=== PATIENT | female | born 1975 | race Two or more races ===

== ENCOUNTER 2024-12-06 08:40 | Emergency (ER) | payer MEDICARE, MEDICAID, SELFPAY ==
--- NOTE | 2024-12-06 08:43 | EKG_ITS ---
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
--- NOTE | 2024-12-06 08:50 | XR_ITS ---
Examination: PA lateral chest 2 views TECHNIQUE: Upright PA lateral chest 2 views Exam date and time: December 06, 2024 0903 hours Comparison 01/13/2024 INDICATIONS: Onset chest pain today. FINDINGS: Normal heart size. Lungs are clear. The osseous structures are intact IMPRESSION: No active disease
--- NOTE | 2024-12-06 08:51 | PD.EDRME ---
Rapid Medical Screening Exam RME Arrival date/time: 12/06/24 08:40 49-year-old female with a history of CAD, hyperlipidemia, type 2 diabetes, hypertension presents to the emergency room with a chief complaint of sternal 10 out of 10 chest pain that radiates down her left arm x 20 minutes. I have greeted and performed a focused initial assessment of this patient. A comprehensive ED assessment and evaluation of the patient, analysis of all test results, and completion of the medical decision making process will be conducted by additional ED providers. Chief Complaint: Chest Pain Time Seen by Provider: 12/06/24 08:49 Vital signs reviewed by provider: Yes
[2024-12-06 09:02] VITALS: BP 123/81; PULSE 95; RESP 18; TEMP 36.9; O2SAT 97
[2024-12-06 09:03] VITALS: BMI 33.9
--- NOTE | 2024-12-06 09:09 | PD.EDCHEST ---
ED Chest Pain RME/HPI General Chief Complaint: Chest Pain Stated Complaint: upper mid chest pain radiating to left arm x 20min Time Seen by Provider: 12/06/24 08:49 Arrival date/time: 12/06/24 08:40 RME / HPI RME / HPI narrative: 12/06/24 08:40 49-year-old female with a history of CAD, hyperlipidemia, type 2 diabetes, hypertension presents to the emergency room with a chief complaint of sternal 10 out of 10 chest pain that radiates down her left arm x 20 minutes. I have greeted and performed a focused initial assessment of this patient. A comprehensive ED assessment and evaluation of the patient, analysis of all test results, and completion of the medical decision making process will be conducted by additional ED providers. This section includes all my notes and documentations, including HPI, PE, and ED course.? Geoff Miller MD HPI: 49-year-old female here with a couple day history of left-sided anterior chest pain. No cough. No fever or chills. No shortness of breath. No other complaints. ROS: All negative except as documented in HPI. Physical Exam: General:? Alert and oriented.? In obvious pain. Eyes:? Conjunctivae and lids clear.? ENT:? No nasal congestion.? Neck:? Supple.? Heart:? RRR.? Lungs:? No respiratory distress.? Good air movement.? No rhonchi, wheezing, rales.?? Chest: Palpation of the anterior chest, left of the sternum, reproduces her pain. Abdomen:? Soft and nontender.?? Legs:? No clubbing, cyanosis, edema.? Skin:? Warm and dry.?? Neuro:? Alert and oriented X 3.?? I reviewed all diagnostic test results. My interpretation of the EKG is?sinus rhythm with no acute ST?T changes. My interpretation of the chest x-ray is no acute findings. Blood tests unremarkable, including negative troponin. At this point, diagnoses include?chest wall pain. Treatment here included?morphine. Significant improvement noted. Recommended more outpatient cardiac workup. Based on my best medical judgment, made decision no further evaluation or treatment indicated at this time.? Patient understands and agrees to the discharge instructions customized and printed, see below. Geoff Miller MD Discharge instructions from Dr. Miller: 1. After extensive evaluation, there is no life-threatening condition.? Such as heart attack or pneumothorax (collapsed lung). 2. Your pain is originating from the chest wall and not from an internal organ.? The chest wall has many joints and muscles between the ribs, so sprains and strains are common.?? 3. Apply ice or heat if helpful.? Tylenol with codeine for severe pain. 4. See a private doctor on 12/07/2024 for recheck and second opinion. To make sure there is no serious underlying heart condition, ask to help you get more tests for your heart that cannot be done here in the ER.? Such as Holter Monitor (cardiac monitoring at home from a day to even a month), heart stress test (on treadmill or with medication), echocardiogram (imaging of your heart structures), heart catherization (checking for blockages in your heart arteries), and a referral to see a Entry Level Truck Driver.? 5. Seek immediate medical care with worsening or with any concerns.?? Related Data Home Medications ?Medication ?Instructions ?Recorded ?Confirmed metoprolol tartrate 50 mg tablet 50 mg PO BID 04/06/18 08/11/24 hydrocodone 10 mg-acetaminophen 1 tab PO BID 08/01/21 08/11/24 325 mg tablet tizanidine 4 mg capsule (Zanaflex) 4 mg PO HS 01/27/22 08/11/24 semaglutide 2 mg/dose (8 mg/3 mL) 2 mg subcut QWEEK 01/07/23 08/11/24 subcutaneous pen injector (Ozempic) amlodipine 5 mg tablet (Norvasc) 5 mg PO QDAY 04/02/24 08/11/24 atorvastatin 40 mg tablet 40 mg PO QDAY 04/02/24 08/11/24 meclizine 25 mg tablet 25 mg PO HS 04/02/24 08/11/24 montelukast 10 mg tablet 10 mg PO QDAY 04/02/24 08/11/24 omeprazole 20 mg capsule,delayed 20 mg PO BID 04/02/24 08/11/24 release ranolazine 500 mg tablet,extended 500 mg PO QDAY 04/02/24 08/11/24 release,12 hr empagliflozin 25 mg-metformin ER 1 tab PO DAILY 04/11/24 08/11/24 1,000 mg tablet,extended release 24hr (Synjardy XR) pregabalin 200 mg capsule (Lyrica) 200 mg PO QDAY 04/11/24 08/11/24 albuterol sulfate 90 mcg/actuation 1 puff inhalation QID PRN sob 08/11/24 08/11/24 aerosol inhaler (Ventolin HFA) duloxetine 60 mg capsule,delayed 120 mg PO QDAY 08/11/24 08/11/24 release (Cymbalta) ergocalciferol (vitamin D2) 1,250 1,250 mcg PO QWEEK 08/11/24 08/11/24 mcg (50,000 unit) capsule (Vitamin D2) famotidine 40 mg tablet 40 mg PO HS 08/11/24 08/11/24 fluticasone 250 mcg-salmeterol 50 1 inh inhalation BID 08/11/24 08/11/24 mcg/dose blistr powdr for inhalation (Advair Diskus) insulin glargine 100 unit/mL (3 50 unit subcut QPM 08/11/24 08/11/24 mL) subcutaneous pen (Basaglar KwikPen U-100 Insulin) insulin lispro 100 unit/mL 15 unit subcut TID 08/11/24 08/11/24 subcutaneous pen (Admelog SoloStar U-100 Insulin lispro) isosorbide mononitrate 60 mg 60 mg PO QDAY 08/11/24 08/11/24 tablet,extended release 24 hr meloxicam 7.5 mg tablet 7.5 mg PO QDAY 08/11/24 08/11/24 metoclopramide HCl 5 mg tablet 5 mg PO QID 08/11/24 08/11/24 (Reglan) pantoprazole 40 mg tablet,delayed 40 mg PO QDAY 08/11/24 08/11/24 release (Protonix) promethazine 25 mg tablet 25 mg PO BID 08/11/24 08/11/24 sennosides 8.6 mg tablet (Senokot) 8.6 mg PO BID 08/11/24 08/11/24 Previous Rx's ?Medication ?Instructions ?Recorded aspirin 81 mg tablet,delayed 81 mg PO QDAY #30 tabs 11/17/22 release clopidogrel 75 mg tablet 75 mg PO DAILY #30 tabs 11/17/22 acetaminophen 300 mg-codeine 30 mg 2 tab PO TID PRN pain #20 tabs 12/06/24 tablet Allergies Allergy/AdvReac Type Severity Reaction Status Date / Time No Known Allergies Allergy Verified 12/06/24 08:44 Review of Systems Review of Systems Systems Reviewed: All systems reviewed, normal except as documented Past Medical History Past Medical History NEUROLOGIC: Positive Neurological Disorders, Cerebrovascular Accident (2017), Peripheral Neuropathy and Migraine CARDIAC: Positive Cardiac Disorders, Myocardial Infarction (2017), Cardiac Arrhythmia, Angina, Coronary Artery Disease, Atherosclerotic Heart Disease, Hypercholesterolemia and Hypertension RESPIRATORY: Positive Asthma GASTROINTESTINAL: Positive Gastrointestinal Disorders, Gastroesophageal Reflux Disease and Obesity GENITOURINARY: Positive Genitourinary Disorders and Renal Disease (stage 3) MUSCULOSKELETAL: Positive Musculoskeletal Disorders, Arthritis, Degenerative Disk Disease and Fibromyalgia ENDOCRINE: Positive Endocrine Disorders and Diabetes Mellitus Type 2 PSYCHO/SOCIAL: Positive Depression and Anxiety OTHER HISTORY: Positive Hospitalization Family History FAMILY HISTORY: Positive Family Respiratory Disorders, Family Cardiac Disorders, Family Gastrointestinal Problems, Family Cancer and Family Surgery Surgical History SURGICAL: Positive Cardiac Surgery, Coronary Stent (x1 2020), Angiogram, Abdominal Surgery and Arthroscopy (bilateral meniscectomy) Social History SMOKING STATUS: Never smoker SUBSTANCE USE: does not use ED Exam Narrative Physical exam: As noted in HPI Course Course Course Narrative: chest xray ordered to help determine etiology of chest pain. Quality Measures none Orders Category Date Time Status EKG (ED ONLY) *Do not use* NOW Care 12/06/24 08:43 Completed EKG (ED Only) Stat Exams 12/06/24 08:43 Draft XR chest 2V Stat Exams 12/06/24 08:50 Completed B-Type Natriuretic Peptide Stat Lab 12/06/24 09:27 Completed CBC Stat Lab 12/06/24 09:27 Completed Comprehensive Metabolic Panel Stat Lab 12/06/24 09:27 Completed Drug Screen,Urine Stat Lab 12/06/24 08:50 Ordered Magnesium Stat Lab 12/06/24 09:27 Completed Partial Thromboplastin Time Stat Lab 12/06/24 09:27 Completed Prothrombin Time with INR Stat Lab 12/06/24 09:27 Completed Troponin I Stat Lab 12/06/24 09:27 Completed Urinalysis Stat Lab 12/06/24 08:50 Ordered Aspirin Chew Med 12/06/24 10:18 Discontinued 324 mg PO X1 ONE Morphine Inj Med 12/06/24 10:18 Discontinued 4 mg IVP X1 ONE Vital Signs Vital signs: Vital Signs Temperature 98.5 F 12/06/24 09:02 Pulse Rate 95 12/06/24 09:02 Respiratory Rate 18 12/06/24 09:02 Blood Pressure 123/81 12/06/24 09:02 Pulse Oximetry (%) 97 12/06/24 09:02 Oxygen Delivery Method Room Air 12/06/24 09:02 Pulse ox is 97% on room air which is adequate. Chest Pain Patient data External records reviewed:: [facility] previous records (I reviewed ED visit on 08/26/2024) Clinical information provided by:: patient Social determinants that could affect healthcare access:: none Patient has the following chronic illnesses:: CAD s/p PCI, hypertension, diabetes, hyperlipidemia How is presenting disease/condition affected by chronic disease/condition?: uneffected by Evaluation data The following diagnostics were reviewed and interpreted by me:: lab results, radiology exam(s) and EKG tracing(s) (My interpretation of the EKG is: Sinus rhythm (96 bpm) with nonspecific ST-T changes. Geoff Miller MD) Lab and/or radiology exams considered but not ordered:: None Interpretation Summary: Chest wall pain Medications / Prescriptions Medications or Prescriptions considered but not ordered:: None Medication administrations:: Medication Administration History Discontinued Medications Aspirin (Aspirin 81 Mg Chew) 324 mg PO X1 ONE Stop: 12/06/24 10:19 Last Admin: 12/06/24 10:59 Dose: 324 mg Documented By: LINDEN Morphine Sulfate (Morphine Sulf Inj 10 Mg/Ml Vial) 4 mg IVP X1 ONE Stop: 12/06/24 10:19 Last Admin: 12/06/24 11:00 Dose: 4 mg Documented By: RD Aspirin and morphine Consultations Consultation(s) initiated? (list below): No Diagnosis Chest Pain Differential Diagnosis: pneumothorax, stable angina, unstable angina pectoris, atypical chest pain, st elevation myocardial infarction, costochondritis, chest pain and other (Chest wall pain) Most likely diagnosis given after review of the tests above:: Chest wall pain Admission Indicated Admission indicated?: not indicated Explain why admission is indicated or not indicated:: Admission criteria not met Admission Request Was there a request for admission?: No Disposition Plan Disposition Plan: Discharge Discharge Attestation Discharge Attestation: The patient and all family members were given an opportunity to ask questions and understood the discharge instructions. Discharge instructions specifically effects, indications for sooner follow up or return to the emergency department, and the expected course of current diagnosis. Patient condition: Stable Discharge Plan Plan Patient Disposition: HOME (Self Care) Prescriptions/Referrals Prescriptions/Med Rec: New acetaminophen-codeine 300-30 mg tablet 2 tab PO TID MDD 6 PRN (Reason: pain) Qty: 20 0RF No Action metoprolol tartrate 50 mg Tablet 50 mg PO BID hydrocodone-acetaminophen 10-325 mg Tablet 1 tab PO BID Hold Instructions: Resume on 04/12/24. Rx Instructions: Take 1/2 tablet by mouth every 6 hours as needed for pain for 30 days tizanidine [Zanaflex] 4 mg Capsule 4 mg PO HS Hold Instructions: Resume on 04/12/24. clopidogrel 75 mg Tablet 75 mg PO DAILY Qty: 30 0RF aspirin 81 mg tablet,delayed release (DR/EC) 81 mg PO QDAY Qty: 30 0RF pregabalin [Lyrica] 200 mg Capsule 200 mg PO QDAY Hold Instructions: Resume on 04/12/24. Synjardy XR 25-1,000 mg Tablet, Ir - Er, Biphasic 24hr 1 tab PO DAILY promethazine 25 mg Tablet 25 mg PO BID insulin lispro [Admelog SoloStar U-100 Insulin] 100 unit/mL Insulin Pen 15 unit SUBCUT TID insulin glargine [Basaglar KwikPen U-100 Insulin] 100 unit/mL (3 mL) Insulin Pen 50 unit SUBCUT QPM fluticasone propion-salmeterol [Advair Diskus] 250-50 mcg/dose Blister With Device 1 inh INHALATION BID sennosides [Senokot] 8.6 mg Tablet 8.6 mg PO BID famotidine 40 mg Tablet 40 mg PO HS meloxicam 7.5 mg Tablet 7.5 mg PO QDAY isosorbide mononitrate 60 mg Tablet Extended Release 24 Hr 60 mg PO QDAY metoclopramide HCl [Reglan] 5 mg Tablet 5 mg PO QID pantoprazole [Protonix] 40 mg Tablet,Delayed Release (Dr/Ec) 40 mg PO QDAY ergocalciferol (vitamin D2) [Vitamin D2] 1,250 mcg (50,000 unit) Capsule 1,250 mcg PO QWEEK albuterol sulfate [Ventolin HFA] 90 mcg/actuation Hfa Aerosol Inhaler 1 puff INHALATION QID PRN (Reason: sob) duloxetine [Cymbalta] 60 mg Capsule,Delayed Release(Dr/Ec) 120 mg PO QDAY Ozempic 2 mg/dose (8 mg/3 mL) Pen Injector 2 mg SUBCUT QWEEK atorvastatin 40 mg Tablet 40 mg PO QDAY amlodipine [Norvasc] 5 mg Tablet 5 mg PO QDAY omeprazole 20 mg Capsule,Delayed Release(Dr/Ec) 20 mg PO BID meclizine 25 mg tablet 25 mg PO HS montelukast 10 mg Tablet 10 mg PO QDAY ranolazine 500 mg Tablet Extended Release 12 Hr 500 mg PO QDAY Referrals: Beba Moon FNP [Primary Care Provider] - In 1 week Problem List Clinical Impression: Chest pain Patient/Caregiver Discharge Instructions Discharge Activity: activity as tolerated Education Materials: ED Chest Pain, Uncertain Cause Additional Instructions: Discharge instructions from Dr. Miller: 1. After extensive evaluation, there is no life-threatening condition.? Such as heart attack or pneumothorax (collapsed lung). 2. Your pain is originating from the chest wall and not from an internal organ.? The chest wall has many joints and muscles between the ribs, so sprains and strains are common.?? 3. Apply ice or heat if helpful.? Tylenol with codeine for severe pain. 4. See a private doctor on 12/07/2024 for recheck and second opinion. To make sure there is no serious underlying heart condition, ask to help you get more tests for your heart that cannot be done here in the ER.? Such as Holter Monitor (cardiac monitoring at home from a day to even a month), heart stress test (on treadmill or with medication), echocardiogram (imaging of your heart structures), heart catherization (checking for blockages in your heart arteries), and a referral to see a Entry Level Truck Driver.? 5. Seek immediate medical care with worsening or with any concerns.?? Print Language: Urdu Stand Alone Forms: [employer] Award Info., Patient Portal Info Letter
--- NOTE | 2024-12-06 09:32 | PC.NURSE ---
Present toER with complaint of chest pain pressure 9/10 with nausea starting at 0830 this morning. Pain is continuous a nd radiates to left shoulder and arm. Previous Hx of heart attack and 1 stent with last LA x 2 years ago. Hx HTN, diabetes, ESRD, and high cholesterol with NKA. Patient GCS 15 and ambulatory.
[2024-12-06 09:37] LABS: Basophils % (Auto) 0 % (0-2.5); Eosinophils # (Auto) 0.3 Thou/mm3 (0.0-0.5); Eosinophils % (Auto) 3 % (0-10); Hematocrit 36.6 % (36.0-46.0); Hemoglobin 11.9 g/dL (12.0-16.0); Immature Granulocytes % (Auto) 0 % (0-0); Immature Granulocytes Auto 0.03 Thou/mm3 (0.00-0.00); Lymphocytes % (Auto) 21 % (10-50); Mean Corpuscular HGB Conc 32.5 g/dl (31.0-37.0); Mean Corpuscular Hemoglobin 26.9 pg (25.0-35.0); Mean Corpuscular Volume 83 fL (80-100); Monocytes # (Auto) 0.7 Thou/mm3 (0.0-0.8); Monocytes % (Auto) 7 % (0-12); Neutrophils # (Auto) 6.7 Thou/mm3 (1.8-7.7); Neutrophils % (Auto) 69 % (37-80); Nucleated Red Blood Cell % 0 /100 WBC (0); Platelet Count 319 Thou/mm3 (140-440); RDW Standard Deviation 41.8 fL (36.4-46.3); Red Blood Count 4.42 Miln/mm3 (4.00-5.20); White Blood Count 9.7 Thou/mm3 (3.6-11.0)
[2024-12-06 09:51] LABS: INR 0.9 (0.9-1.3); Partial Thromboplastin Time 27.9 Seconds (22.0-36.0); Prothrombin Time 10.4 Seconds (9.0-12.2)
[2024-12-06 09:54] LABS: B-Type Natriuretic Peptide 31 pg/mL (0-100)
[2024-12-06 09:58] LABS: Alanine Aminotransferase 13 U/L (10-49); Albumin, Serum 4.1 gm/dL (3.5-5.0); Albumin/Globulin Ratio 1.2 (1.2-2.2); Alkaline Phosphatase 118 U/L (46-116); Anion Gap 7 (7-16); Aspartate Amino Transferase 16 U/L (0-34); BUN/Creatinine Ratio 20 Ratio (12-20); Bilirubin,Total 0.3 mg/dL (0.3-1.2); Blood Urea Nitrogen 22 mg/dL (9-23); Calcium 9.3 mg/dL (8.3-10.6); Calcium (Corrected) 9.3 mg/dL (8.5-10.1); Carbon Dioxide 27.2 mMol/L (20.0-31.0); Chloride 104 mMol/L (98-107); Creatinine (Component) 1.1 mg/dL (0.6-1.3); Estimated Creatinine Clearance 74.5 mL/min (>60); Globulin 3.3 gm/dL (2.3-3.5); Glucose 265 mg/dL (74-106); Osmolality,Calculated 287 (275-295); Potassium 4.6 mMol/L (3.4-5.1); Sodium 138 mMol/L (136-145); Total Protein 7.4 gm/dL (5.7-8.2); Troponin I < 0.020 ng/mL (0.0-0.045); eGFR > 60 See Note
[2024-12-06] MEDS: ASPIRIN 81 MG CHEW 324 MG PO (10:59)
[2024-12-06 11:00] VITALS: BP 154/87; PULSE 89; RESP 16; TEMP 36.7; O2SAT 99
[2024-12-06] MEDS: MORPHINE SULF INJ 10 MG/ML VIAL 4 MG IVP (11:00)
== END 2024-12-06 12:29 | disposition home or self-care (01) ==
PROVIDERS: Nurse Practitioner Family; Emergency Provider Emergency Medicine; PCP Registered Nurse Community Health
DX: R07.89 Other chest pain (principal); E78.5 Hyperlipidemia, unspecified; E11.9 Type 2 diabetes mellitus without complications; I10 Essential (primary) hypertension
CPT/HCPCS: 36415; 71046; 80053; 80307; 81001; 83735; 83880; 84484; 85025; 85610; 85730; 93005; 96374; 99284; J2270; A9270

== ENCOUNTER → 2024-12-15 | Outpatient (CLI) | payer MEDICARE, MEDICAID, SELFPAY ==
--- NOTE | 2024-12-15 08:30 | XR_ITS ---
Exam: MRI knee without contrast, left Date and time of exam: December 15, 2024 0921 hours INDICATIONS: Generalized knee pain after fall 5 months ago, history knee surgery Technique: Multiple axial, coronal, and sagittal sections on the knee have been obtained. T2-Weighted sagittal, fat-suppressed images, TR 3,500, TE 62, T2 weighted coronal fat-saturated images, TR 3,500, TE 62 Proton density sagittal sections, TR 1800, TE 31. T-1 weighted coronal images, TR 524, TE 13.0 Findings: Medial meniscus anterior horn intact. Medial meniscus, body meniscocapsular separation. Posterior horn medial meniscus large horizontal linear tear. Lateral meniscus anterior horn truncation intermargin Lateral meniscus, body truncation inner margin and extruded from the joint space Posterior horn lateral meniscus is intact Kit cruciate ligaments appear absent Knee effusion is large with internal debris. Quadriceps and patellar tendons appear intact. There is no evidence of tendinosis. Inflammatory change or fracture of Hoffa's fat pad is not seen. Medial patellar facet demonstrates moderate thinning. Lateral patellar facet cartilage demonstrates moderate thinning. Trochlear cartilage demonstrates moderate thinning. Marrow signal adequate. Medial collateral ligament appears intact. Illiotibial band and fibular collateral ligament are intact. Biceps femoris tendons appear intact. Medial femoral condylar articular cartilage demonstrates moderate thinning. Lateral femoral condylar articular cartilage demonstratessevere thinning. Tibial plateau cartilage demonstrates severe lateral thinning. Impression: Extensive medial lateral meniscus tears Meniscocapsular separation body of the medial meniscus Absent anterior posterior cruciate ligaments Large knee effusion with synovial debris, recommend follow-up knee MRI with intravenous contrast to exclude pigmented villonodular synovitis
== END | disposition home or self-care (01) ==
PROVIDERS: PCP Registered Nurse Community Health; Referring Provider Orthopaedic Surgery; Visit Provider Orthopaedic Surgery
DX: S83.282A Other tear of lateral meniscus, current injury, left knee, initial encounter (principal); S83.195A Other dislocation of left knee, initial encounter; W19.XXXA Unspecified fall, initial encounter; M25.462 Effusion, left knee
CPT/HCPCS: 73721

== ENCOUNTER 2025-01-06 05:45 | Day surgery (SDC) | payer MEDICARE, MEDICAID, SELFPAY ==
[2025-01-05 09:49] VITALS: BMI 34.0
[2025-01-05 11:04] LABS: Basophils % (Auto) 0 % (0-2.5); Eosinophils # (Auto) 0.2 Thou/mm3 (0.0-0.5); Eosinophils % (Auto) 3 % (0-10); Hematocrit 40.8 % (36.0-46.0); Hemoglobin 12.9 g/dL (12.0-16.0); Immature Granulocytes % (Auto) 0 % (0-0); Immature Granulocytes Auto 0.02 Thou/mm3 (0.00-0.00); Lymphocytes # (Auto) 1.8 Thou/mm3 (1.0-4.8); Lymphocytes % (Auto) 23 % (10-50); Mean Corpuscular HGB Conc 31.6 g/dl (31.0-37.0); Mean Corpuscular Hemoglobin 26.4 pg (25.0-35.0); Mean Corpuscular Volume 84 fL (80-100); Monocytes # (Auto) 0.6 Thou/mm3 (0.0-0.8); Monocytes % (Auto) 8 % (0-12); Neutrophils # (Auto) 5.2 Thou/mm3 (1.8-7.7); Neutrophils % (Auto) 66 % (37-80); Nucleated Red Blood Cell % 0 /100 WBC (0); Platelet Count 365 Thou/mm3 (140-440); RDW Standard Deviation 44.5 fL (36.4-46.3); Red Blood Count 4.88 Miln/mm3 (4.00-5.20)
[2025-01-05 11:10] LABS: Partial Thromboplastin Time 29.3 Seconds (22.0-36.0); Prothrombin Time 10.5 Seconds (9.0-12.2)
[2025-01-05 11:26] LABS: Alanine Aminotransferase 14 U/L (10-49); Albumin, Serum 4.4 gm/dL (3.5-5.0); Albumin/Globulin Ratio 1.3 (1.2-2.2); Alkaline Phosphatase 112 U/L (46-116); Anion Gap 9 (7-16); Aspartate Amino Transferase 15 U/L (0-34); BUN/Creatinine Ratio 17 Ratio (12-20); Bilirubin,Total 0.3 mg/dL (0.3-1.2); Blood Urea Nitrogen 20 mg/dL (9-23); Calcium 9.9 mg/dL (8.3-10.6); Calcium (Corrected) 9.9 mg/dL (8.5-10.1); Carbon Dioxide 30.4 mMol/L (20.0-31.0); Chloride 101 mMol/L (98-107); Creatinine (Component) 1.2 mg/dL (0.6-1.3); Estimated Creatinine Clearance 68.3 mL/min (>60); Globulin 3.3 gm/dL (2.3-3.5); Glucose 94 mg/dL (74-106); Osmolality,Calculated 282 (275-295); Potassium 4.9 mMol/L (3.4-5.1); Sodium 140 mMol/L (136-145); Total Protein 7.7 gm/dL (5.7-8.2); eGFR 55 See Note
[2025-01-06] VITALS (7 sets, daily range): BP systolic 88–149; BP diastolic 55–83; PULSE 70–89; RESP 12–18; TEMP 36.3–36.7; O2SAT 95–100; BMI 35.1
[2025-01-06] MEDS: RINGERS LACTATED 1000 ML 1,000 ML 20 ML IV (06:51)
--- NOTE | 2025-01-06 07:33 | CHAP ---
Patient expressed gratitude for prayer before their procedure.
--- NOTE | 2025-01-06 08:49 | ESOP_ITS ---
Date of Procedure 01/06/25 Pre Op Diagnosis 1. Torn medial meniscus left knee joint 2 torn lateral meniscus 3 degenerative changes changes 4 synovitis Post Op Diagnosis Same Procedure 1. Partial medial meniscectomy 2. Partial lateral meniscectomy 3 chondroplasty 4 partial synovectomy Findings Refer dictation Procedure Description The patient was given general endotracheal anesthesia. Once satisfactory anesthesia was achieved, tourniquet was placed on left upper thigh. Following that the part was thoroughly prepped and draped. After using Esmarch the tourniquet pressure was raised to 350 mmHg. A skin incision was made proximal to lateral tibial plateau and arthroscope was introduced in the usual fashion. Another a skin incision was made in suprapatellar pouch area and outlet was established. The findings were noted as below. In suprapatellar pouch area significant synovial tissue inflammation was present. Medial plica was present as well. The undersurface of patella showed grade 4 chondromalacia. The anterior femoral condyle showed grade 3/4 chondromalacia. Soft tissue impingement was present. The patellar tracking was checked and found to be good. The medial compartment showed grade 4 chondromalacia for medial tibial plateau and medial femoral condyle. On the posterior aspect of the medial tibial plateau to there was an area which was completely denuded of cartilage. The medial femoral condyle showed insignificant erosion and was consistent with grade IV chondromalacia. The medial meniscus showed degeneration and tear of the anterior horn. It also showed torn posterior horn of Another skin incision was made proximal to medial tibial plateau and a probe was introduced and findings were confirmed. The anterior cruciate ligament was torn most of the part. The anterior drawer test was performed and found to be lax The lateral compartment showed grade IV chondromalacia of lateral femoral condyle and tibial plateau. Lateral meniscus showed degeneration and complex tear of the body and anterior horn. A basket was introduced and torn part of the posterior horn of the medial meni scus was excised. A shaver was introduced and shaving of the anterior horn and posterior horn of medial meniscus was performed. Soft tissue impingement was shaved off. Chondroplasty of the medial femoral condyle and medial tibial plateau was performed. A basket was introduced and torn part of the lateral meniscus excised. The shaving of the body and anterior horn body and posterior horn of lateral meniscus was done. The chondroplasty of the patella and and anterior femoral condyle was performed. The soft tissue impingement was shaved off. A partial synovectomy was performed. Copious amount of irrigation was used to irrigate the knee joint. All the debris were removed. 3-0 Prolene was used to close the wound. About 20 mL of quarter percent Marcaine along with 10 mg of Duramorph was injected. Patient tolerated procedure well. Estimated blood loss was about 5 mL. Prognosis in this case is very much guarded. Because of significant chondromalacia patient pain continues and it is significant for a long period of time patient may be a candidate for knee replacement and patient is fully aware of that. Patient was taken to the recovery room in good condition. Anesthesia GETA Pathology / specimen None Estimated Blood Loss 1 Surgeon Jones Cortes MD Surgical Staff Operation Date: 01/06/25 07:30 Case Staff Anesthesiologist: Alessandro Fuentes
--- NOTE | 2025-01-06 08:50 | SUR.PHASEI ---
0850 Patient arrived to recovery resting comfortably in [facility], on oxygen 6L via oxy mask with an oral airway, breathing unlabored, vital signs stable, dressing intact to left knee; sutures, fluffs, abd, webril, bias roll, silk tape, no bleeding noted, lung sounds clear upon auscultation, bilateral dorsalis pedis pulses present when palpated, patient has good circulation to left lower extremity; skin color normal for patient, warm to touch, report received from Juan Jose TOVAR and Dr. Lobo
--- NOTE | 2025-01-06 09:44 | SUR.PHASEII ---
0944 Patient meets discharge criteria from recovery, awake and alert, breathing unlabored, vital signs stable, denies pain, dressing intact; no bleeding noted, patient ate two jello's and drinking water, denies nausea, patient able to dress herself into her clothing, discharge instructions given to patient and patients , signed discharge instructions. Patient given all her belongings prior to discharge, transported via wheelchair and left in a private vehicle.
--- NOTE | 2025-01-06 10:12 | ESHP_ITS ---
RE: YUNG SULLIVAN : 1975 DATE OF ADMISSION: 01/06/2025 HISTORY OF PRESENT ILLNESS: The patient came to my office on 01/05/2025 for detailed preop history and physical examination. The patient got history of pain in the left knee joint for long period of time. The patient underwent two left knee arthroscopy in the past. However, the last few months is extremely painful. The patient's graded intensity of pain to be 8-9/10, affecting quality of life and activities of daily living. Knee joint is swollen as well. The patient wants something to be done about it. PAST MEDICAL HISTORY: The patient has a history of diabetes mellitus, high blood pressure, high cholesterol, coronary artery disease, gastroparesis, fibromyalgia, and high cholesterol. PAST SURGICAL HISTORY: Appendectomy, two right knee arthroscopy and two left knee arthroscopy and left rotator cuff surgery. DRUG HISTORY: The patient is on; 1. Albuterol. 2. Amlodipine. 3. Aspirin. The patient stopped aspirin recently. The patient also stopped Plavix. OTHER MEDICATIONS: Includes; 1. Vitamin D12. 2. Famotidine. 3. Glyburide. 4. Insulin. 5. Isosorbide. 6. Meclizine. 7. Metoclopramide. 8. Metoprolol. 9. Nitroglycerin. 10. Ozempic. 11. Pantoprazole. 12. Promethazine. 13. Tizanidine. ALLERGIES: NIL KNOWN. FAMILY HISTORY AND SOCIAL HISTORY: Denies smoking, drinking, and is retired. PHYSICAL EXAMINATION: GENERAL: Rather little bit overweight lady. VITAL SIGNS: Pulse 82 per minute. Blood pressure is 130/76. NECK: Soft, supple. No masses felt. Trachea is centrally placed. CARDIOVASCULAR: First and second hearts sounds normal. No murmur heard. LUNGS: Bilateral vesicular breath sounds. CHEST: Clear. ABDOMEN: Soft. No masses felt. Bowel sounds present. BREASTS: Examination is not indicated in this case. RECTAL: The patient is advised to see the family physician for rectal examination. EXTREMITIES: Left knee examination reveals 1+ swelling and 2+ tenderness. Range of motion is 0 to 115 degrees of flexion. Patellofemoral crepitus is present. There is general varus deformity. Anterior drawer test and Chrystal tests were suggestive of laxity consistent with ACL tear. DIAGNOSTIC DATA: MRI scan confirmed torn meniscus, significant degenerative joint disease changes and synovitis with increased joint fluid. ASSESSMENT AND PLAN: Detailed discussion took place. I explained that I already did two arthroscopy and there is a possibility that the patient may need a knee replacement. Detailed discussion took place. However, the patient wanted to try once more arthroscopy because it has temporized in the past. Detailed discussion took place and the patient is fully aware that if arthroscopy did not work then she will certainly need knee replacement. Risks with anesthesia was explained and that includes, but not limited to reaction to anesthetic agents, cardiac arrest or rarely it might be fatal. Risks with operation includes infection and if that happens, the patient may need further surgical procedure. Other risks include delayed healing, wound dehiscence, etc. Indeed, if we do find grade 4 chondromalacia and articular cartilage are not present, the patient may be a candidate for knee replacement. No guarantees given regarding pain relief and/or functional outcome and the patient is fully aware of that. Accordingly, surgery is booked for 01/06/2025. Appropriate lab work is done. DT: 08:59:47 TT: 10:11:00 Ref: [id number] - TID: [id number]
== END 2025-01-06 09:44 | disposition home or self-care (01) ==
PROVIDERS: Anesthesiology; PCP Registered Nurse Community Health; Referring Provider Orthopaedic Surgery; Visit Provider Orthopaedic Surgery
PROC: (CPT 29870; principal; 2025-01-06 07:30)
DX: S83.242A Other tear of medial meniscus, current injury, left knee, initial encounter (principal); E78.00 Pure hypercholesterolemia, unspecified; I25.10 Atherosclerotic heart disease of native coronary artery without angina pectoris; M65.90 Unspecified synovitis and tenosynovitis, unspecified site; M79.7 Fibromyalgia; E11.43 Type 2 diabetes mellitus with diabetic autonomic (poly)neuropathy; K31.84 Gastroparesis
CPT/HCPCS: 29880; 29875; 36415; 80053; 85025; 85610; 85730; A4217; A4649; J0690; J1100; J1885; J2250; J2371; J2405; J2704; J3010; J3490; J7120

== ENCOUNTER → 2025-01-19 | Outpatient (CLI) | payer MEDICARE, MEDICAID, SELFPAY ==
--- NOTE | 2025-01-19 15:18 | XR_ITS ---
Examination:Left hip AP, lateral, AP pelvis 3 views Technique: Hip AP lateral, AP pelvis, 3 views Exam date and time:January 19, 2025 1547 hours INDICATIONS: Left hip pain after falling 4 months ago FINDINGS: No left hip fracture or dislocation Right hip bones of the pelvis intact IMPRESSION: No hip or pelvic fracture noted.
--- NOTE | 2025-01-19 15:19 | XR_ITS ---
Examination: Right elbow 3 views Technique: Elbow AP, oblique, lateral 3 views Exam date and time: January 19, 2025 1547 hours INDICATIONS: Injury to the elbow 5 years ago with persistent elbow pain. FINDINGS: No acute fracture No dislocation No foreign body IMPRESSION: No acute fracture No significant arthritic change.
== END | disposition home or self-care (01) ==
PROVIDERS: PCP Registered Nurse Community Health; Referring Provider Nurse Practitioner Family; Visit Provider Nurse Practitioner Family
DX: M25.521 Pain in right elbow (principal); M25.552 Pain in left hip; S59.901S Unspecified injury of right elbow, sequela; X58.XXXS Exposure to other specified factors, sequela
CPT/HCPCS: 73080; 73502

== ENCOUNTER 2025-01-22 14:31 | Emergency (ER) | payer MEDICARE, MEDICAID, SELFPAY ==
[2025-01-22 15:20] VITALS: BP 96/68; PULSE 100; RESP 18; TEMP 37.2; O2SAT 98; BMI 33.9
[2025-01-22] MEDS: KETOROLAC INJ 60 MG/2 ML VIAL 30 MG IM (15:35)
--- NOTE | 2025-01-22 16:23 | PD.EDEXREM ---
ED Extremity Problem RME/HPI General Chief complaint: Extremity Problem,Nontraumatic Stated complaint: LEFT LEG PAIN SWELLING POST SURGERY 01/06/25 Time Seen by Provider: 01/22/25 15:26 Source: patient Arrival date/time: 01/22/25 14:31 49-year-old female with no known medical history presents to the emergency room with a chief complaint of left knee swelling and tenderness x 3 days. Mode of arrival: ambulatory Limitations: no limitations Related Data Home Medications ?Medication ?Instructions ?Recorded ?Confirmed metoprolol tartrate 50 mg tablet 50 mg PO BID 04/06/18 01/06/25 hydrocodone 10 mg-acetaminophen 1 tab PO BID 08/01/21 01/06/25 325 mg tablet tizanidine 4 mg capsule (Zanaflex) 4 mg PO HS 01/27/22 01/06/25 semaglutide 2 mg/dose (8 mg/3 mL) 2 mg subcut QWEEK 01/07/23 01/06/25 subcutaneous pen injector (Ozempic) amlodipine 5 mg tablet (Norvasc) 5 mg PO QDAY 04/02/24 01/06/25 atorvastatin 40 mg tablet 40 mg PO QDAY 04/02/24 01/06/25 meclizine 25 mg tablet 25 mg PO HS 04/02/24 01/06/25 montelukast 10 mg tablet 10 mg PO QDAY 04/02/24 01/06/25 omeprazole 20 mg capsule,delayed 20 mg PO BID 04/02/24 01/06/25 release ranolazine 500 mg tablet,extended 500 mg PO QDAY 04/02/24 01/06/25 release,12 hr pregabalin 200 mg capsule (Lyrica) 200 mg PO QDAY 04/11/24 01/06/25 albuterol sulfate 90 mcg/actuation 1 puff inhalation QID PRN sob 08/11/24 01/06/25 aerosol inhaler (Ventolin HFA) duloxetine 60 mg capsule,delayed 120 mg PO QDAY 08/11/24 01/06/25 release (Cymbalta) ergocalciferol (vitamin D2) 1,250 1,250 mcg PO QWEEK 08/11/24 01/06/25 mcg (50,000 unit) capsule (Vitamin D2) famotidine 40 mg tablet 40 mg PO HS 08/11/24 01/06/25 fluticasone 250 mcg-salmeterol 50 1 inh inhalation BID 08/11/24 01/06/25 mcg/dose blistr powdr for inhalation (Advair Diskus) insulin glargine 100 unit/mL (3 50 unit subcut QPM 08/11/24 01/06/25 mL) subcutaneous pen (Basaglar KwikPen U-100 Insulin) insulin lispro 100 unit/mL 15 unit subcut TID 08/11/24 01/06/25 subcutaneous pen (Admelog SoloStar U-100 Insulin lispro) isosorbide mononitrate 60 mg 60 mg PO QDAY 08/11/24 01/06/25 tablet,extended release 24 hr meloxicam 7.5 mg tablet 7.5 mg PO QDAY 08/11/24 01/06/25 metoclopramide HCl 5 mg tablet 5 mg PO QID 08/11/24 01/06/25 (Reglan) pantoprazole 40 mg tablet,delayed 40 mg PO QDAY 08/11/24 01/06/25 release (Protonix) promethazine 25 mg tablet 25 mg PO BID 08/11/24 01/06/25 sennosides 8.6 mg tablet (Senokot) 8.6 mg PO BID 08/11/24 01/06/25 glyburide 1.25 mg tablet 1.25 mg PO QDAY 01/05/25 01/06/25 nitroglycerin 0.4 mg sublingual 0.4 mg buccal [id number] PRN chest 01/05/25 01/06/25 tablet pain Previous Rx's ?Medication ?Instructions ?Recorded aspirin 81 mg tablet,delayed 81 mg PO QDAY #30 tabs 11/17/22 release clopidogrel 75 mg tablet 75 mg PO DAILY #30 tabs 11/17/22 Allergies Allergy/AdvReac Type Severity Reaction Status Date / Time No Known Allergies Allergy Verified 01/22/25 14:34 Review of Systems Review of Systems Systems Reviewed: All systems reviewed, normal except as documented Constitutional Constitutional: Reports system reviewed and no additional complaints, except as documented, Denies fatigue, Denies fever(s), Denies headache(s) and Denies weakness Eyes Eyes: Reports system reviewed and no additional complaints, except as documented, Denies blurry vision and Denies change in vision ENT Ears, Nose, Mouth, and Throat: Reports system reviewed and no additional complaints, except as documented, Denies otalgia, Denies headache(s), Denies nasal congestion, Denies throat swelling and Denies vertigo Cardiovascular Cardiovascular: Reports system reviewed and no additional complaints, except as documented, Denies chest pain, Denies dyspnea and Denies dyspnea on exertion Respiratory Respiratory: Reports system reviewed and no additional complaints, except as documented, Denies chest congestion, Denies cough, Denies dyspnea, Denies dyspnea on exertion and Denies wheezing Gastrointestinal Gastrointestinal: Reports system reviewed and no additional complaints, except as documented, Denies abdominal pain, Denies cramping, Denies nausea and Denies vomiting Genitourinary Genitourinary: Reports system reviewed and no additional complaints, except as documented Musculoskeletal Musculoskeletal: Reports system reviewed and no additional complaints, except as documented, Reports abnormal gait, Reports arthralgias, Denies back pain, Denies deformity and Reports limited range of motion Integumentary/Breasts Skin/Breast: Reports system reviewed and no additional complaints, except as documented and Denies wounds Neurologic Neurologic: Reports system reviewed and no additional complaints, except as documented, Reports abnormal gait, Denies confusion, Denies headache(s), Denies lack of coordination, Denies vertigo and Denies weakness Psychiatric Psychiatric: Reports system reviewed and no additional complaints, except as documented, Denies anxiety, Denies confusion, Denies depression, Denies paranoia, Denies suicidal ideation and Denies tactile hallucinations Endocrine Endocrine: Reports system reviewed and no additional complaints, except as documented and Denies fatigue Hematologic/Lymphatic Hematologic/Lymphatic: Reports system reviewed and no additional complaints, except as documented and Denies lymphadenopathy Allergic/Immunologic Allergic/Immunologic: Reports system reviewed and no additional complaints, except as documented, Denies throat swelling, Denies urticaria and Denies wheezing ED Exam General Limitations: Present no limitations General appearance: Present alert and in no apparent distress Head Head exam: Present atraumatic Eye Eye exam: Present normal appearance, PERRL and EOMI ENT ENT exam: Present normal exam, normal oropharynx and mucous membranes moist Neck Neck exam: Present normal inspection, full ROM and trachea midline Chest Chest inspection: Present normal inspection and symmetric chest wall rise Respiratory Respiratory exam: Present normal lung sounds bilaterally Cardiovascular Cardiovascular exam: Present regular rate, normal rhythm and normal heart sounds Abdominal Exam Abdominal exam: Present soft and normal bowel sounds Extremities Exam Extremities exam: Present normal inspection and full ROM Expanded Lower Extremity Exam Hip/Pelvis exam: Present normal inspection Upper leg exam: Present normal inspection Knee exam: Present tenderness and swelling; Absent full ROM, deformity, erythema or effusion Lower leg exam: Present normal inspection; Absent Homans' sign Ankle exam: Present normal inspection Foot/toe exam: Present normal inspection Back Exam Back exam: Present normal inspection and full ROM Neurological Exam Neurological exam: Present alert, oriented X3 and CN II-XII intact Psychiatric Psychiatric exam: Present normal affect and normal mood Skin Skin exam: Present warm, dry, intact and normal color Course Quality Measures none Orders Category Date Time Status igor wrap [Splint / Immobilizer] STAT Care 01/22/25 15:24 Completed Ketorolac Inj [Toradol Inj] Med 01/22/25 15:24 Discontinued 30 mg IM X1 ONE Vital Signs Vital signs: Vital Signs Temperature 98.9 F 01/22/25 15:20 Pulse Rate 100 01/22/25 15:20 Respiratory Rate 18 01/22/25 15:20 Blood Pressure 96/68 01/22/25 15:20 Pulse Oximetry (%) 98 01/22/25 15:20 Oxygen Delivery Method Room Air 01/22/25 15:20 O2 saturation 98% within normal limits Extremity Problem MDM Narrative MDM Narrative:: 49-year-old female with no known medical history presents to the emergency room with a chief complaint of left knee swelling and tenderness x 3 days. Patient is hemodynamically stable. Physical examination shows tenderness and pain to the left knee. Patient states she is having pain and swelling to the knee. There is no pain or tenderness to the calf or groin. There is a negative Homans' sign there is no warmth to the touch or any signs of infection. Patient was educated that she needs to put an Igor wrap on it and see her surgeon for possible total knee replacement. Patient states she has a appointment with her surgeon already. Patient denies any trauma to the area there is no numbness or tingling to the area. Medication was given and the patient was reevaluated with significant improvement to her pain in her knee. Patient was discharged and educated to follow-up with her surgeon and return to the emergency room for any evidence of worsening signs or symptoms. Patient data External records reviewed:: [facility] previous records Clinical information provided by:: patient Social determinants that could affect healthcare access:: none Patient has the following chronic illnesses:: No chronic illness How is presenting disease/condition affected by chronic disease/condition?: no chronic disease Evaluation data The following diagnostics were reviewed and interpreted by me:: lab results and radiology exam(s) Lab and/or radiology exams considered but not ordered:: N/A Interpretation Summary: N/A Medications / Prescriptions Medications or Prescriptions considered but not ordered:: Medication given Medication administrations:: Medication Administration History Discontinued Medications Ketorolac Tromethamine (Ketorolac Inj 60 Mg/2 Ml Vial) 30 mg IM X1 ONE Stop: 01/22/25 15:25 Last Admin: 01/22/25 15:35 Dose: 30 mg Documented By: KF Medication given Consultations Consultation(s) initiated? (list below): No Diagnosis Extremity Problem Differential Diagnosis: deep venous thrombosis of upper extremity, lower extremity edema, deep vein thrombosis of lower extremity and other (Left knee pain/left knee sprain) Most likely diagnosis given after review of the tests above:: Left knee sprain Admission Indicated Admission indicated?: not indicated Admission Request Was there a request for admission?: No Disposition Plan Disposition Plan: Discharge Discharge Attestation Discharge Attestation: The patient and all family members were given an opportunity to ask questions and understood the discharge instructions. Discharge instructions specifically effects, indications for sooner follow up or return to the emergency department, and the expected course of current diagnosis. Patient condition: Stable Discharge Plan Plan Patient Disposition: HOME (Self Care) Disposition Comment: Stable Prescriptions/Referrals Prescriptions/Med Rec: No Action metoprolol tartrate 50 mg Tablet 50 mg PO BID hydrocodone-acetaminophen 10-325 mg Tablet 1 tab PO BID Rx Instructions: Take 1/2 tablet by mouth every 6 hours as needed for pain for 30 days tizanidine [Zanaflex] 4 mg Capsule 4 mg PO HS clopidogrel 75 mg Tablet 75 mg PO DAILY Qty: 30 0RF aspirin 81 mg tablet,delayed release (DR/EC) 81 mg PO QDAY Qty: 30 0RF pregabalin [Lyrica] 200 mg Capsule 200 mg PO QDAY promethazine 25 mg Tablet 25 mg PO BID insulin lispro [Admelog SoloStar U-100 Insulin] 100 unit/mL Insulin Pen 15 unit SUBCUT TID insulin glargine [Basaglar KwikPen U-100 Insulin] 100 unit/mL (3 mL) Insulin Pen 50 unit SUBCUT QPM fluticasone propion-salmeterol [Advair Diskus] 250-50 mcg/dose Blister With Device 1 inh INHALATION BID sennosides [Senokot] 8.6 mg Tablet 8.6 mg PO BID famotidine 40 mg Tablet 40 mg PO HS meloxicam 7.5 mg Tablet 7.5 mg PO QDAY isosorbide mononitrate 60 mg Tablet Extended Release 24 Hr 60 mg PO QDAY metoclopramide HCl [Reglan] 5 mg Tablet 5 mg PO QID pantoprazole [Protonix] 40 mg Tablet,Delayed Release (Dr/Ec) 40 mg PO QDAY ergocalciferol (vitamin D2) [Vitamin D2] 1,250 mcg (50,000 unit) Capsule 1,250 mcg PO QWEEK albuterol sulfate [Ventolin HFA] 90 mcg/actuation Hfa Aerosol Inhaler 1 puff INHALATION QID PRN (Reason: sob) duloxetine [Cymbalta] 60 mg Capsule,Delayed Release(Dr/Ec) 120 mg PO QDAY Ozempic 2 mg/dose (8 mg/3 mL) Pen Injector 2 mg SUBCUT QWEEK atorvastatin 40 mg Tablet 40 mg PO QDAY amlodipine [Norvasc] 5 mg Tablet 5 mg PO QDAY omeprazole 20 mg Capsule,Delayed Release(Dr/Ec) 20 mg PO BID meclizine 25 mg tablet 25 mg PO HS montelukast 10 mg Tablet 10 mg PO QDAY ranolazine 500 mg Tablet Extended Release 12 Hr 500 mg PO QDAY nitroglycerin 0.4 mg tablet, sublingual 0.4 mg BUCCAL [id number] PRN (Reason: chest pain) Patient Comments: DISSOLVE 1 TABLET UNDER THE TONGUE EVERY 5 MINUTES UP TO THREE DOSES NEEDED FOR CHEST PAIN. CALL 911 IF NO RELIEF glyburide 1.25 mg tablet 1.25 mg PO QDAY Problem List Clinical Impression: Acute pain of left knee Patient/Caregiver Discharge Instructions Education Materials: ED IGOR Wrap, ED Arthralgia Additional Instructions: Please follow-up with your knee surgeon. Your total knee replacement will be the surgery to fix your problems. Please follow-up with your knee surgeon and let them know that you are having increased pain and swelling. Medication was given here to help you with your swelling and pain. For any evidence of worsening signs or symptoms please return to the emergency room immediately Print Language: Burmese Stand Alone Forms: Sapna Award Info., Patient Portal Info Letter PA/PORCELAIN TECHNICIAN Supervising Physician PA/JESSICA Supervising Physician: Dr. Benson
== END 2025-01-22 15:44 | disposition home or self-care (01) ==
PROVIDERS: Emergency Provider Emergency Medicine; PCP Registered Nurse Community Health
DX: M25.562 Pain in left knee (principal)
CPT/HCPCS: 96372; 99283; J1885

== ENCOUNTER 2025-01-27 22:41 | Emergency (ER) | payer MEDICARE, MEDICAID, SELFPAY ==
[2025-01-28 00:15] VITALS: BP 156/90; PULSE 100; RESP 18; TEMP 37.2; O2SAT 100; BMI 34.4
--- NOTE | 2025-01-28 00:31 | XR_ITS ---
Examination: Knee, left , 3 views Technique: Knee AP, lateral, oblique 3 views Date and time of exam: January 28, 2025 0122 hrs. Comparison 08/19/2024 Indications: Knee pain and swelling beginning 3 weeks ago. Findings: Moderate narrowing lateral joint space Moderate osteopenia Large knee effusion No fracture On the lateral view of the femoral condyles appear anteriorly displaced relative to the articulating surfaces of the tibia Impression: On the lateral view the femoral condyles appear anteriorly displaced relative to the tibial plateau, subluxation appearance, clinical correlation advised
--- NOTE | 2025-01-28 00:31 | XR_ITS ---
Examination: Duplex scan of the lower extremity, unilateral left complete Date and time of exam: January 28, 2025 0040 hrs. Indications: Left knee pain and swelling post knee surgery January 06, 2025 Technique: Duplex scan of the extremity veins using B-mode/grayscale imaging and Doppler spectral analysis and color flow Attention is directed to internal echogenicity, compression and augmentation involving these veins, color flow assessment, spectral analysis Findings: Major deep venous structures in the extremity demonstrate normal course and caliber. There is no evidence of deep vein thrombosis. Normal color flow and spectral analysis 4.4 x 2.9 x 3.8 cm mixed echogenic mass in the left perineal region most consistent with hematoma, clinical correlation advised Impression: Negative for DVT.. 4.4 x 2.9 x 3.8 cm mixed echogenic mass in the left perineal region most consistent with hematoma, clinical correlation advised
--- NOTE | 2025-01-28 00:32 | PD.EDRME ---
Rapid Medical Screening Exam [facility] Arrival date/time: 01/27/25 22:41 49F with history of DM, CAD/MS, and recent L knee surgery by Dr. Tamez (follow-up on ) presents to ED with worsening L knee pain, swelling, and warmth. Chief Complaint: Extremity Injury, Lower Vital signs: Vital Signs Temperature 99 F 01/28/25 00:15 Pulse Rate 100 01/28/25 00:15 Respiratory Rate 18 01/28/25 00:15 Blood Pressure 156/90 H 01/28/25 00:15 Pulse Oximetry (%) 100 01/28/25 00:15 Oxygen Delivery Method Room Air 01/28/25 00:15
[2025-01-28] MEDS: HYDROcodone/APAP 5/325 TABLET 1 TAB PO (00:40)
--- NOTE | 2025-01-28 02:39 | PRELIM_ITS ---
Left lower extremity venous Doppler ultrasound. January 28, 2025 at 0048 hours Clinical history: Rule out deep vein thrombosis. Technique: Duplex scan of the left lower extremity deep venous systems was performed utilizing 2D grayscale imaging, Doppler spectral analysis and color flow Doppler and with compression. Comparison: No prior study currently available for review Findings: Hernandez scale, color flow and spectral Doppler evaluation of the left lower extremity deep veins was performed. The common femoral, superficial femoral and popliteal veins are patent and compressible. Normal respiratory variation and augmentation are noted. The great saphenous vein is patent and compressible at the level of the saphenofemoral junction. The calf veins to the extent visualized are patent. There is no evidence of occlusive or nonocclusive thrombus. There is a focal 4.4 x 2.9 x 3.8 cm mixed echogenicity collection within the peroneal/popliteal region which may indicate a hematoma or other cystic lesion. Impression: No sonographic evidence of deep venous thrombosis in the left lower extremity. A 4.4 cm mixed echogenicity but predominately cystic appearing lesion in the peroneal/popliteal region may represent a hematoma or other cystic lesion. Recommend soft tissue ultrasound of this region for further evaluation. Report Electronically Signed By: Byron Frey 01/28/2025 2:38:42 AM [EST]
[2025-01-28 02:47] LABS: Basophils % (Auto) 0 % (0-2.5); Eosinophils # (Auto) 0.3 Thou/mm3 (0.0-0.5); Eosinophils % (Auto) 3 % (0-10); Hematocrit 33.5 % (36.0-46.0); Hemoglobin 10.9 g/dL (12.0-16.0); Immature Granulocytes % (Auto) 0 % (0-0); Immature Granulocytes Auto 0.04 Thou/mm3 (0.00-0.00); Lymphocytes # (Auto) 2.3 Thou/mm3 (1.0-4.8); Lymphocytes % (Auto) 24 % (10-50); Mean Corpuscular HGB Conc 32.5 g/dl (31.0-37.0); Mean Corpuscular Hemoglobin 26.5 pg (25.0-35.0); Mean Corpuscular Volume 81 fL (80-100); Monocytes # (Auto) 0.9 Thou/mm3 (0.0-0.8); Monocytes % (Auto) 9 % (0-12); Neutrophils # (Auto) 6.1 Thou/mm3 (1.8-7.7); Neutrophils % (Auto) 63 % (37-80); Nucleated Red Blood Cell % 0 /100 WBC (0); Platelet Count 397 Thou/mm3 (140-440); RDW Standard Deviation 42.3 fL (36.4-46.3); Red Blood Count 4.12 Miln/mm3 (4.00-5.20); White Blood Count 9.6 Thou/mm3 (3.6-11.0)
[2025-01-28 03:20] LABS: Alanine Aminotransferase 9 U/L (10-49); Albumin, Serum 4.3 gm/dL (3.5-5.0); Albumin/Globulin Ratio 1.3 (1.2-2.2); Alkaline Phosphatase 127 U/L (46-116); Anion Gap 8 (7-16); Aspartate Amino Transferase 11 U/L (0-34); BUN/Creatinine Ratio 22 Ratio (12-20); Bilirubin,Total 0.3 mg/dL (0.3-1.2); Blood Urea Nitrogen 22 mg/dL (9-23); C-Reactive Protein 17.3 mg/dL (0.0-0.9); Calcium 9.8 mg/dL (8.3-10.6); Calcium (Corrected) 9.8 mg/dL (8.5-10.1); Carbon Dioxide 26.6 mMol/L (20.0-31.0); Chloride 106 mMol/L (98-107); Estimated Creatinine Clearance 82.6 mL/min (>60); Globulin 3.3 gm/dL (2.3-3.5); Glucose 92 mg/dL (74-106); Osmolality,Calculated 284 (275-295); Potassium 4.7 mMol/L (3.4-5.1); Procalcitonin 0.05 ng/ml (0.0-0.49); Sodium 141 mMol/L (136-145); Total Protein 7.6 gm/dL (5.7-8.2); eGFR > 60 See Note
[2025-01-28 03:49] LABS: Sed Rate (ESR) 108 mm/hr (0-20)
--- NOTE | 2025-01-28 07:16 | PD.EDADULT ---
ED General RME/HPI General Chief complaint: Extremity Injury, Lower Stated complaint: LEFT KNEE SWELLING, HOT TO TOUCH, AND PAINFUL Time Seen by Provider: 01/28/25 01:22 Arrival date/time: 01/27/25 22:41 RME / HPI RME / HPI narrative: 01/27/25 22:41 RME: 49F with history of DM, CAD/OH, and recent L knee surgery by Dr. Tamez (follow-up on ) presents to ED with worsening L knee pain, swelling, and warmth. HPI: 49-year-old female with history of diabetes, coronary artery disease, who has had chronic left knee effusion with multiple arthroscopies done by Dr. Cabral (last December) who presents to the emergency department with worsening of her chronic left knee swelling. She contacted Dr. Cortes and he is not back until Thursday therefore she comes to the emergency department relief. She takes [place] 10/325 twice a day as prescribed by her pain specialist. She did contact her pain specialist and advised to continue with prescription from Dr. Cortes. Related Data Home Medications ?Medication ?Instructions ?Recorded ?Confirmed metoprolol tartrate 50 mg tablet 50 mg PO BID 04/06/18 01/06/25 hydrocodone 10 mg-acetaminophen 1 tab PO BID 08/01/21 01/06/25 325 mg tablet tizanidine 4 mg capsule (Zanaflex) 4 mg PO HS 01/27/22 01/06/25 semaglutide 2 mg/dose (8 mg/3 mL) 2 mg subcut QWEEK 01/07/23 01/06/25 subcutaneous pen injector (Ozempic) amlodipine 5 mg tablet (Norvasc) 5 mg PO QDAY 04/02/24 01/06/25 atorvastatin 40 mg tablet 40 mg PO QDAY 04/02/24 01/06/25 meclizine 25 mg tablet 25 mg PO HS 04/02/24 01/06/25 montelukast 10 mg tablet 10 mg PO QDAY 04/02/24 01/06/25 omeprazole 20 mg capsule,delayed 20 mg PO BID 04/02/24 01/06/25 release ranolazine 500 mg tablet,extended 500 mg PO QDAY 04/02/24 01/06/25 release,12 hr pregabalin 200 mg capsule (Lyrica) 200 mg PO QDAY 04/11/24 01/06/25 albuterol sulfate 90 mcg/actuation 1 puff inhalation QID PRN sob 08/11/24 01/06/25 aerosol inhaler (Ventolin HFA) duloxetine 60 mg capsule,delayed 120 mg PO QDAY 08/11/24 01/06/25 release (Cymbalta) ergocalciferol (vitamin D2) 1,250 1,250 mcg PO QWEEK 08/11/24 01/06/25 mcg (50,000 unit) capsule (Vitamin D2) famotidine 40 mg tablet 40 mg PO HS 08/11/24 01/06/25 fluticasone 250 mcg-salmeterol 50 1 inh inhalation BID 08/11/24 01/06/25 mcg/dose blistr powdr for inhalation (Advair Diskus) insulin glargine 100 unit/mL (3 50 unit subcut QPM 08/11/24 01/06/25 mL) subcutaneous pen (Basaglar KwikPen U-100 Insulin) insulin lispro 100 unit/mL 15 unit subcut TID 08/11/24 01/06/25 subcutaneous pen (Admelog SoloStar U-100 Insulin lispro) isosorbide mononitrate 60 mg 60 mg PO QDAY 08/11/24 01/06/25 tablet,extended release 24 hr meloxicam 7.5 mg tablet 7.5 mg PO QDAY 08/11/24 01/06/25 metoclopramide HCl 5 mg tablet 5 mg PO QID 08/11/24 01/06/25 (Reglan) pantoprazole 40 mg tablet,delayed 40 mg PO QDAY 08/11/24 01/06/25 release (Protonix) promethazine 25 mg tablet 25 mg PO BID 08/11/24 01/06/25 sennosides 8.6 mg tablet (Senokot) 8.6 mg PO BID 08/11/24 01/06/25 glyburide 1.25 mg tablet 1.25 mg PO QDAY 01/05/25 01/06/25 nitroglycerin 0.4 mg sublingual 0.4 mg buccal [id number] PRN chest 01/05/25 01/06/25 tablet pain Previous Rx's ?Medication ?Instructions ?Recorded aspirin 81 mg tablet,delayed 81 mg PO QDAY #30 tabs 11/17/22 release clopidogrel 75 mg tablet 75 mg PO DAILY #30 tabs 11/17/22 Allergies Allergy/AdvReac Type Severity Reaction Status Date / Time No Known Allergies Allergy Verified 01/30/25 12:11 Review of Systems Review of Systems Systems Reviewed: All systems reviewed, normal except as documented ED Exam Narrative Physical exam: GENERAL APPEARANCE: AxOx4, generally well-appearing, mild to moderate distress, nontoxic HEENT: NC, AT. MMM. EOMI, clear conjunctiva, oropharynx clear.. HEART: Normal rate and regular rhythm, normal S1/S1, no m/r/g LUNGS: CTAB, moving air well. No crackles or wheezes are heard. EXTREMITIES: Without cyanosis, clubbing or edema. MUSCULOSKELETAL: Left knee with 3 surgical port scars that are clean dry and intact, mild to moderate knee effusion without erythema, minimal warmth, with distal Swelling and pitting edema. FROM of all remaining major joints, no chest tenderness NEUROLOGICAL: Grossly nonfocal. Alert and oriented, moving all 4 extremities. CN not formally tested but appear grossly intact. Observed to ambulate with normal gait. Skin: Warm and dry without any rash. Course Quality Measures none Orders Category Date Time Status US venous doppler LE LT Stat Exams 01/28/25 00:31 Completed XR knee LT 3V Stat Exams 01/28/25 00:31 Completed CBC Stat Lab 01/28/25 02:24 Completed CMP [Comprehensive Metabolic Panel] Stat Lab 01/28/25 02:24 Completed CRP [C-Reactive Protein] Stat Lab 01/28/25 02:24 Completed ESR [Sed Rate (ESR)] Stat Lab 01/28/25 02:24 Completed Procalcitonin Stat Lab 01/28/25 02:24 Completed HYDROcodone*/APAP 5/325 [[place] 5/325] Med 01/28/25 00:31 Discontinued 1 tab PO X1 ONE HYDROcodone*/APAP 5/325 [[place] 5/325] Med 01/28/25 07:14 Discontinued 2 tab PO X1 ONE Vital Signs Vital signs: Vital Signs Temperature 99 F 01/28/25 00:15 Pulse Rate 100 01/28/25 00:15 Respiratory Rate 18 01/28/25 00:15 Blood Pressure 156/90 H 01/28/25 00:15 Pulse Oximetry (%) 100 03/01/25 00:15 Oxygen Delivery Method Room Air 01/28/25 00:15 SpO2 100% on room air, patient is not hypoxic MDM Patient data External records reviewed:: [facility] previous records Clinical information provided by:: patient Social determinants that could affect healthcare access:: none Patient has the following chronic illnesses:: Chronic knee pain How is presenting disease/condition affected by chronic disease/condition?: caused by Evaluation data The following diagnostics were reviewed and interpreted by me:: lab results and radiology exam(s) Lab and/or radiology exams considered but not ordered:: As per narrative Interpretation Summary: As per narrative Medications Medications considered but not ordered:: None Medication administrations:: Medication Administration History Discontinued Medications Hydrocodone Bitart/Acetaminophen (Hydrocodone/Apap 5/325 Tablet) 1 tab PO X1 ONE Stop: 01/28/25 00:32 Last Admin: 01/28/25 00:40 Dose: 1 tab Documented By: SCARLETT Hydrocodone Bitart/Acetaminophen (Hydrocodone/Apap 5/325 Tablet) 2 tab PO X1 ONE Stop: 01/28/25 07:15 Last Admin: 01/28/25 07:57 Dose: 2 tab Documented By: CUAUHTEMOC Above Consultations Consultation(s) initiated? (list below): No Diagnosis Differential Diagnosis ED Complaint MDM: Knee effusion, arthritis, septic joint, cellulitis, DVT Most likely diagnosis given after review of the tests above:: See below Admission Indicated Admission indicated?: not indicated Explain why admission is indicated or not indicated:: As per narrative Admission Request Was there a request for admission?: No Disposition Plan Disposition Plan: Discharge Discharge Attestation Discharge Attestation: The patient and all family members were given an opportunity to ask questions and understood the discharge instructions. Discharge instructions specifically effects, indications for sooner follow up or return to the emergency department, and the expected course of current diagnosis. Patient condition: Stable Medical Decision Making MDM Narrative MDM Narrative: Ms. Hidalgo has a history of chronic knee pain followed by orthopedics and a pain specialist who presents with left knee effusion after a recent arthroscopy done by her orthopedist, Dr. Cortes. Clinical exam is consistent with a moderate knee effusion without significant redness or warmth that would be consistent with a septic joint. I do not feel this is a septic joint, and given recent surgical intervention, it is expected to have a component of inflammation. Patient is also followed by chronic pain management which she did contact and was not giving additional relief for and is largely a part of why she is in the emergency department today. Laboratory testing was sent via the E process shows no acute findings. Given her exam I do not feel it is warranted to do synovial analysis today. She was given a dose of her home pain medicines and to follow-up closely with her orthopedist. Differential Diagnosis Differential Diagnosis: Knee effusion, arthritis, septic joint, cellulitis, DVT Lab Data 01/28/25 02:24 01/28/25 02:24 Labs: Lab Results 01/28/25 Range/Units 02:24 WBC 9.6 (3.6-11.0) Thou/mm3 RBC 4.12 (4.00-5.20) Miln/mm3 Hgb 10.9 L (12.0-16.0) g/dL Hct 33.5 L (36.0-46.0) % MCV 81 (80-100) fL MCH 26.5 (25.0-35.0) pg MCHC 32.5 (31.0-37.0) g/dl RDW Std Deviation 42.3 (36.4-46.3) fL Plt Count 397 D (140-440) Thou/mm3 Neut % (Auto) 63 (37-80) % Lymph % (Auto) 24 (10-50) % [place] % (Auto) 9 (0-12) % Eos % (Auto) 3 (0-10) % Baso % (Auto) 0 (0-2.5) % Neut # (Auto) 6.1 (1.8-7.7) Thou/mm3 Lymph # (Auto) 2.3 (1.0-4.8) Thou/mm3 [place] # (Auto) 0.9 H (0.0-0.8) Thou/mm3 Eos # (Auto) 0.3 (0.0-0.5) Thou/mm3 Baso # (Auto) 0.0 (0.0-0.2) Thou/mm3 Immature Gran # (Auto) 0.04 H (0.00-0.00) Thou/mm3 Absolute Nucleated RBC 0.00 (0.00-0.00) Thou/mm3 Immature Gran % 0 (0-0) % Nucleated RBC % 0 (0) /100 WBC ESR 108 H (0-20) mm/hr Sodium 141 (136-145) mMol/L Potassium 4.7 (3.4-5.1) mMol/L Chloride 106 (98-107) mMol/L Carbon Dioxide 26.6 (20.0-31.0) mMol/L Anion Gap 8 (7-16) BUN 22 (9-23) mg/dL Creatinine 1.0 (0.6-1.3) mg/dL Estim Creat Clear Calc 82.6 (>60) mL/min eGFR > 60 (60 - ) See Note BUN/Creatinine Ratio 22 H (12-20) Ratio Glucose 92 (74-106) mg/dL Calculated Osmolality 284 (275-295) Calcium 9.8 (8.3-10.6) mg/dL Corrected Calcium 9.8 (8.5-10.1) mg/dL Total Bilirubin 0.3 (0.3-1.2) mg/dL AST 11 (0-34) U/L ALT 9 L (10-49) U/L Alkaline Phosphatase 127 H (46-116) U/L C-Reactive Prot, Quant 17.3 H (0.0-0.9) mg/dL Total Protein 7.6 (5.7-8.2) gm/dL Albumin 4.3 (3.5-5.0) gm/dL Globulin 3.3 (2.3-3.5) gm/dL Albumin/Globulin Ratio 1.3 (1.2-2.2) Procalcitonin 0.05 (0.0-0.49) ng/ml Discharge Plan Plan Patient Disposition: HOME (Self Care) Prescriptions/Referrals Prescriptions/Med Rec: No Action metoprolol tartrate 50 mg Tablet 50 mg PO BID hydrocodone-acetaminophen 10-325 mg Tablet 1 tab PO BID Rx Instructions: Take 1/2 tablet by mouth every 6 hours as needed for pain for 30 days tizanidine [Zanaflex] 4 mg Capsule 4 mg PO HS clopidogrel 75 mg Tablet 75 mg PO DAILY Qty: 30 0RF aspirin 81 mg tablet,delayed release (DR/EC) 81 mg PO QDAY Qty: 30 0RF pregabalin [Lyrica] 200 mg Capsule 200 mg PO QDAY promethazine 25 mg Tablet 25 mg PO BID insulin lispro [Admelog SoloStar U-100 Insulin] 100 unit/mL Insulin Pen 15 unit SUBCUT TID insulin glargine [Basaglar KwikPen U-100 Insulin] 100 unit/mL (3 mL) Insulin Pen 50 unit SUBCUT QPM fluticasone propion-salmeterol [Advair Diskus] 250-50 mcg/dose Blister With Device 1 inh INHALATION BID sennosides [Senokot] 8.6 mg Tablet 8.6 mg PO BID famotidine 40 mg Tablet 40 mg PO HS meloxicam 7.5 mg Tablet 7.5 mg PO QDAY isosorbide mononitrate 60 mg Tablet Extended Release 24 Hr 60 mg PO QDAY metoclopramide HCl [Reglan] 5 mg Tablet 5 mg PO QID pantoprazole [Protonix] 40 mg Tablet,Delayed Release (Dr/Ec) 40 mg PO QDAY ergocalciferol (vitamin D2) [Vitamin D2] 1,250 mcg (50,000 unit) Capsule 1,250 mcg PO QWEEK albuterol sulfate [Ventolin HFA] 90 mcg/actuation Hfa Aerosol Inhaler 1 puff INHALATION QID PRN (Reason: sob) duloxetine [Cymbalta] 60 mg Capsule,Delayed Release(Dr/Ec) 120 mg PO QDAY Ozempic 2 mg/dose (8 mg/3 mL) Pen Injector 2 mg SUBCUT QWEEK atorvastatin 40 mg Tablet 40 mg PO QDAY amlodipine [Norvasc] 5 mg Tablet 5 mg PO QDAY omeprazole 20 mg Capsule,Delayed Release(Dr/Ec) 20 mg PO BID meclizine 25 mg tablet 25 mg PO HS montelukast 10 mg Tablet 10 mg PO QDAY ranolazine 500 mg Tablet Extended Release 12 Hr 500 mg PO QDAY nitroglycerin 0.4 mg tablet, sublingual 0.4 mg BUCCAL [id number] PRN (Reason: chest pain) Patient Comments: DISSOLVE 1 TABLET UNDER THE TONGUE EVERY 5 MINUTES UP TO THREE DOSES NEEDED FOR CHEST PAIN. CALL 911 IF NO RELIEF glyburide 1.25 mg tablet 1.25 mg PO QDAY Referrals: Beba Moon, [facility] [Primary Care Provider] - In 1 week Problem List Clinical Impression: Effusion of knee joint, left, Chronic knee pain Patient/Caregiver Discharge Instructions Education Materials: ED Chronic Pain, ED Knee Effusion Additional Instructions: Follow-up with Dr. Cortes as scheduled. Follow-up with your pain specialist in 1 week. You can return to the emergency department sooner symptoms worsen or if you notice any new, concerning issues. Print Language: [place] Citizen Stand Alone Forms: [employer] Info., Patient Portal Info Letter
[2025-01-28] MEDS: HYDROcodone/APAP 5/325 TABLET 2 TAB PO (07:57)
== END 2025-01-28 08:36 | disposition home or self-care (01) ==
PROVIDERS: Physician Assistant; Emergency Provider Emergency Medicine; PCP Registered Nurse Community Health
DX: M25.462 Effusion, left knee (principal); G89.29 Other chronic pain; M25.562 Pain in left knee; E11.9 Type 2 diabetes mellitus without complications
CPT/HCPCS: 36415; 73562; 80053; 84145; 85025; 85652; 86140; 93971; 99284; A9270

== ENCOUNTER 2025-01-30 12:08 | Emergency (ER) | payer MEDICARE, MEDICAID, SELFPAY ==
[2025-01-30 12:26] VITALS: BP 129/86; PULSE 89; RESP 19; TEMP 36.7; O2SAT 99; BMI 35.6
--- NOTE | 2025-01-30 12:47 | XR_ITS ---
Examination: Duplex scan of the lower extremity, unilateral left complete Date and time of exam: January 30, 2025 1336 hours INDICATIONS: Left knee pain and swelling beginning one month ago, postop knee surgery January 06, 2025 Technique: Duplex scan of the extremity veins using B-mode/grayscale imaging and Doppler spectral analysis and color flow Attention is directed to internal echogenicity, compression and augmentation involving these veins, color flow assessment, spectral analysis Findings: Major deep venous structures in the extremity demonstrate normal course and caliber. There is no evidence of deep vein thrombosis. Normal color flow and spectral analysis Left knee probable popliteal cyst 30 x 24 mm Impression: Negative for DVT..
--- NOTE | 2025-01-30 12:47 | PD.EDRME ---
Rapid Medical Screening Exam RME Arrival date/time: 01/30/25 12:08 49-year-old female with history of diabetes, coronary artery disease, who has had chronic left knee effusion with multiple arthroscopies done by Dr Cortes Presents to the emergency department with worsening swelling, tenderness, and warmth to her left knee and left leg. I have greeted and performed a focused initial assessment of this patient. A comprehensive ED assessment and evaluation of the patient, analysis of all test results, and completion of the medical decision making process will be conducted by additional ED providers. Chief Complaint: Extremity Injury, Lower Time Seen by Provider: 01/30/25 12:29 Vital signs: Vital Signs Temperature 98.1 F 01/30/25 12:26 Pulse Rate 89 01/30/25 12:26 Respiratory Rate 19 01/30/25 12:26 Blood Pressure 129/86 H 01/30/25 12:26 Pulse Oximetry (%) 99 01/30/25 12:26 Oxygen Delivery Method Room Air 01/30/25 12:26 Vital signs reviewed by provider: Yes
[2025-01-30] MEDS: KETOROLAC INJ 60 MG/2 ML VIAL 30 MG IM (13:06)
[2025-01-30] MEDS: HYDROmorphone INJ 2 MG/ML VIAL 1 MG IM (13:07)
[2025-01-30 13:11] LABS: Basophils % (Auto) 0 % (0-2.5); Eosinophils # (Auto) 0.3 Thou/mm3 (0.0-0.5); Eosinophils % (Auto) 3 % (0-10); Hematocrit 34.4 % (36.0-46.0); Hemoglobin 10.9 g/dL (12.0-16.0); Immature Granulocytes % (Auto) 1 % (0-0); Immature Granulocytes Auto 0.04 Thou/mm3 (0.00-0.00); Lymphocytes # (Auto) 1.9 Thou/mm3 (1.0-4.8); Lymphocytes % (Auto) 22 % (10-50); Mean Corpuscular HGB Conc 31.7 g/dl (31.0-37.0); Mean Corpuscular Hemoglobin 26.5 pg (25.0-35.0); Mean Corpuscular Volume 84 fL (80-100); Monocytes # (Auto) 0.5 Thou/mm3 (0.0-0.8); Monocytes % (Auto) 6 % (0-12); Neutrophils # (Auto) 5.7 Thou/mm3 (1.8-7.7); Neutrophils % (Auto) 68 % (37-80); Nucleated Red Blood Cell % 0 /100 WBC (0); Platelet Count 468 Thou/mm3 (140-440); RDW Standard Deviation 43.4 fL (36.4-46.3); Red Blood Count 4.11 Miln/mm3 (4.00-5.20); White Blood Count 8.4 Thou/mm3 (3.6-11.0)
[2025-01-30 13:26] LABS: Alanine Aminotransferase 10 U/L (10-49); Albumin, Serum 4.7 gm/dL (3.5-5.0); Albumin/Globulin Ratio 1.5 (1.2-2.2); Alkaline Phosphatase 158 U/L (46-116); Anion Gap 10 (7-16); Aspartate Amino Transferase 10 U/L (0-34); BUN/Creatinine Ratio 18 Ratio (12-20); Bilirubin,Total 0.2 mg/dL (0.3-1.2); Blood Urea Nitrogen 27 mg/dL (9-23); Calcium 9.9 mg/dL (8.3-10.6); Calcium (Corrected) 9.9 mg/dL (8.5-10.1); Carbon Dioxide 26.7 mMol/L (20.0-31.0); Chloride 102 mMol/L (98-107); Creatinine (Component) 1.5 mg/dL (0.6-1.3); Estimated Creatinine Clearance 56.1 mL/min (>60); Globulin 3.2 gm/dL (2.3-3.5); Glucose 316 mg/dL (74-106); Osmolality,Calculated 294 (275-295); Potassium 4.8 mMol/L (3.4-5.1); Sodium 139 mMol/L (136-145); Total Protein 7.9 gm/dL (5.7-8.2); eGFR 42 See Note
[2025-01-30 15:35] VITALS: BP 189/110; PULSE 72; RESP 16; TEMP 36.3; O2SAT 100
--- NOTE | 2025-01-30 15:39 | PC.NURSE ---
Patient states pain to left knee pain x 3 weeks s/p surgery on 01/10/25, chart up for review. patient states pain decreased to 7/10 after dilaudid administration.
--- NOTE | 2025-01-30 16:27 | PD.EDADULT ---
ED General RME/HPI General Chief complaint: Extremity Injury, Lower Stated complaint: UNABLE TO STAND ON L) LEG; SURG 1 MO AGO; PAINFUL Time Seen by Provider: 01/30/25 12:29 Arrival date/time: 01/30/25 12:08 CC: Persistent lower extremity pain in the left lower extremity since sutures were removed on January 16 status post medial meniscus tear. The patient is awake alert oriented patient is on chronic pain management. Has had the same issue for the past 2 weeks. Patient denies fever chills shortness of breath difficulty breathing headache nausea vomiting or diarrhea. Patient states that she has been elevating the leg but has had no relief. No other complaints at this time. RME / HPI RME / HPI narrative: 01/30/25 12:08 49-year-old female with history of diabetes, coronary artery disease, who has had chronic left knee effusion with multiple arthroscopies done by Dr Cortes Presents to the emergency department with worsening swelling, tenderness, and warmth to her left knee and left leg. I have greeted and performed a focused initial assessment of this patient. A comprehensive ED assessment and evaluation of the patient, analysis of all test results, and completion of the medical decision making process will be conducted by additional ED providers. Related Data Home Medications ?Medication ?Instructions ?Recorded ?Confirmed metoprolol tartrate 50 mg tablet 50 mg PO BID 04/06/18 01/06/25 hydrocodone 10 mg-acetaminophen 1 tab PO BID 08/01/21 01/06/25 325 mg tablet tizanidine 4 mg capsule (Zanaflex) 4 mg PO HS 01/27/22 01/06/25 semaglutide 2 mg/dose (8 mg/3 mL) 2 mg subcut QWEEK 01/07/23 01/06/25 subcutaneous pen injector (Ozempic) amlodipine 5 mg tablet (Norvasc) 5 mg PO QDAY 04/02/24 01/06/25 atorvastatin 40 mg tablet 40 mg PO QDAY 04/02/24 01/06/25 meclizine 25 mg tablet 25 mg PO HS 04/02/24 01/06/25 montelukast 10 mg tablet 10 mg PO QDAY 04/02/24 01/06/25 omeprazole 20 mg capsule,delayed 20 mg PO BID 04/02/24 01/06/25 release ranolazine 500 mg tablet,extended 500 mg PO QDAY 04/02/24 01/06/25 release,12 hr pregabalin 200 mg capsule (Lyrica) 200 mg PO QDAY 04/11/24 01/06/25 albuterol sulfate 90 mcg/actuation 1 puff inhalation QID PRN sob 08/11/24 01/06/25 aerosol inhaler (Ventolin HFA) duloxetine 60 mg capsule,delayed 120 mg PO QDAY 08/11/24 01/06/25 release (Cymbalta) ergocalciferol (vitamin D2) 1,250 1,250 mcg PO QWEEK 08/11/24 01/06/25 mcg (50,000 unit) capsule (Vitamin D2) famotidine 40 mg tablet 40 mg PO HS 08/11/24 01/06/25 fluticasone 250 mcg-salmeterol 50 1 inh inhalation BID 08/11/24 01/06/25 mcg/dose blistr powdr for inhalation (Advair Diskus) insulin glargine 100 unit/mL (3 50 unit subcut QPM 08/11/24 01/06/25 mL) subcutaneous pen (Basaglar KwikPen U-100 Insulin) insulin lispro 100 unit/mL 15 unit subcut TID 08/11/24 01/06/25 subcutaneous pen (Admelog SoloStar U-100 Insulin lispro) isosorbide mononitrate 60 mg 60 mg PO QDAY 08/11/24 01/06/25 tablet,extended release 24 hr meloxicam 7.5 mg tablet 7.5 mg PO QDAY 08/11/24 01/06/25 metoclopramide HCl 5 mg tablet 5 mg PO QID 08/11/24 01/06/25 (Reglan) pantoprazole 40 mg tablet,delayed 40 mg PO QDAY 08/11/24 01/06/25 release (Protonix) promethazine 25 mg tablet 25 mg PO BID 08/11/24 01/06/25 sennosides 8.6 mg tablet (Senokot) 8.6 mg PO BID 08/11/24 01/06/25 glyburide 1.25 mg tablet 1.25 mg PO QDAY 01/05/25 01/06/25 nitroglycerin 0.4 mg sublingual 0.4 mg buccal [id number] PRN chest 01/05/25 01/06/25 tablet pain Previous Rx's ?Medication ?Instructions ?Recorded aspirin 81 mg tablet,delayed 81 mg PO QDAY #30 tabs 11/17/22 release clopidogrel 75 mg tablet 75 mg PO DAILY #30 tabs 11/17/22 Allergies Allergy/AdvReac Type Severity Reaction Status Date / Time No Known Allergies Allergy Verified 01/30/25 12:11 Review of Systems Review of Systems Narrative Review of Systems: GEN: No fever, no chills, no weight loss EYES: No discharge, no visual changes, no pain HEENT: No ear pain, no congestion, no sore throat PULM: No shortness of breath, no cough, no congestion CV: No chest pain, no dyspnea on exertion, no palpitations GI: No nausea, no vomiting, no diarrhea, no pain, no constipation : No frequency, no urgency, no dysuria MUSC/SKEL: No joint pain, no back pain, lower leg pain SKIN: No rash PSYCH: No hallucinations, no depression HEME/LYMPH: No easy bleeding or bruising tendencies NEURO: No weakness, no headache Past Medical History Past Medical History NEUROLOGIC: Positive Neurological Disorders, Cerebrovascular Accident, Peripheral Neuropathy and Migraine; Negative Transient Ischemic Attacks (TIA), Dementia, Alzheimer's Disease, Parkinson's Disease, Brain Tumor, Meningitis, Seizures, Epilepsy, Multiple Sclerosis, Cerebral Palsy, Amyotrophic Lateral Sclerosis (ALS/Majo Gehrig's), Guillain-Hinckley Syndrome, Spina Bifida, Paralysis, Damon's Palsy, Subdural Hematoma, Head Trauma, Spinal Cord Injury or Traumatic Brain Injury CARDIAC: Positive Cardiac Disorders, Myocardial Infarction, Cardiac Arrhythmia, Angina, Coronary Artery Disease, Atherosclerotic Heart Disease, Hypercholesterolemia and Hypertension; Negative Atrial Fibrillation, Heart Murmur, Peripheral Vascular Disease, Aneurysm, Congestive Heart Failure, Congenital Heart Disease, Valvular Heart Disease, Rheumatic Fever, Cardiomyopathy, Edema, Pericarditis, Cellulitis, Deep Vein Thrombosis, Hypotension or Varicose Veins RESPIRATORY: Positive Asthma; Negative Chronic Obstructive Pulmonary Disease (COPD), Bronchitis, Emphysema, Pneumonia, Pulmonary Fibrosis, Cystic Fibrosis, Tuberculosis, Pulmonary Embolism, Pulmonary Edema or Sleep Apnea GASTROINTESTINAL: Positive Gastrointestinal Disorders, Gastroesophageal Reflux Disease and Obesity; Negative Hepatitis, Cirrhosis, Pancreatitis, Celiac Disease, Gall Bladder Disease, Gastrointestinal Bleed, Esophageal Varices, Henao's Esophagus, Colitis, Ulcerative Colitis, Diverticulitis, Diverticulosis, Ulcer, Colorectal Cancer, Irritable Bowel, Crohn's Disease, Obstructive Bowel, Hiatal Hernia or Hemorrhoids GENITOURINARY: Positive Genitourinary Disorders and Renal Disease; Negative Kidney Stones, Polycystic Kidney Disease, Neurogenic Bladder, Inguinal Hernia, Dialysis, Prostate Cancer or Benign Prostatic Hyperplasia REPRODUCTIVE: Negative Breast Cancer, Endometriosis, Genital Herpes, Gonorrhea, Pelvic Inflammatory Disease, Previous Pregnancies, Syphilis, Testicular Cancer or Uterine Prolapse MUSCULOSKELETAL: Positive Musculoskeletal Disorders, Arthritis, Degenerative Disk Disease and Fibromyalgia; Negative Muscular Dystrophy, Myasthenia Gravis, Marfan's Syndrome, Bone Cancer, Rheumatoid Arthritis, Osteoporosis, Gout, Scoliosis, Carpal Tunnel Syndrome, Fractures, Degenerative Joint Disease, Osteomyelitis or Poliovirus ENT: Negative Cataracts, Glaucoma, Blind, Retinal Detachment, Macular Degeneration, Ear Infection, Deafness, Head Trauma or Eye Prosthesis ENDOCRINE: Positive Endocrine Disorders and Diabetes Mellitus Type 2; Negative Diabetes Mellitus Type 1, Hypoglycemia, [place]'s Syndrome, Cascadia's Disease, Hyperthyroidism, Hypothyroidism, Parathyroid Disease, Pituitary Disease, Systemic Lupus Erythematosus, Syndrome of Inappropriate Antidiuretic Hormone (SIADH), Adrenal Disease or Graves' Disease HEMATOLOGIC: Negative Blood Disorders, Anemia, Leukemia, Hemophilia, Thalassemia, Sickle Cell Disease or Clotting Problems PSYCHO/SOCIAL: Positive Depression and Anxiety; Negative Psychiatric Problems, Schizophrenia, Recreational Drug Use, Bipolar Disorder, Behavior Problems, Self-Mutilation, Attention Deficit Disorder, Attention Deficit Hyperactivity Disorder, Depression, Post Traumatic Stress Disorder or Eating Disorder OTHER HISTORY: Positive Hospitalization; Negative Autoimmune Disease, Down Syndrome, Autism, Developmental Delay, Shingles, Falls, Blood Transfusions, Blood Transfusion Reaction, Anesthesia Reactions, Organ Transplant, Chemotherapy, Radiation Therapy, Hyperbaric Therapy, MRSA, VRSA, Vancomycin-Resistant Enterococci, Human Immunodeficiency Virus (HIV), Chicken Pox, Measles, Mumps, Rubella (Cymro Measles), Pertussis, Clostridium Difficile, Cancer, Breast Cancer, Cervical Cancer, Colorectal Cancer, Lung Cancer, Ovarian Cancer, Prostate Cancer or Testicular Cancer Family History FAMILY HISTORY: Positive Family Respiratory Disorders, Family Cardiac Disorders, Family Gastrointestinal Problems, Family Cancer and Family Surgery; Negative Family Psychiatric Problems or Family Anesthesia Reaction Surgical History SURGICAL: Positive Cardiac Surgery, Coronary Stent (2020), Angiogram, Abdominal Surgery, Knee Sx (surgery on 01/06/25) and Arthroscopy (2 on left knee, 1 right knee); Negative Open Heart Surgery, Coronary Artery Bypass Graft, Valve Replacement, Vascular Surgery, Cardiac Catheterization, Pacemaker, Auto Implanted Cardiovert Defib, Carotid Endarterectomy, Endocrine Surgery, Thyroidectomy, Ear Surgery, Tympanostomy Tube, Eye Surgery, Nose Surgery, Oral Surgery, Tonsillectomy, Adenoidectomy, Cochlear Implant, Corneal Transplant, Throat Surgery, Tracheostomy, Gastric Bypass Surgery, Gastrostomy, Bowel Surgery, Nephrectomy, Transurethral Resection, Joint Replacement, Amputation, Open Reduction Internal Fixation, Neurologic Surgery, Brain Shunt, Mastectomy, Lumpectomy, Hysterectomy, Tubal Ligation, Section, Vasectomy or Organ Transplant Social History SMOKING STATUS: Never smoker SUBSTANCE USE: does not use ED Exam Narrative Physical exam: [General: Obese, in moderate discomfort not in any acute distress Head normocephalic HEENT: Within acceptable limits Neck is supple nontender Chest equal chest rise nontender to palpation Respiratory: Clear to auscultation no wheezes crackles or rubs CV: Rate rhythm is regular no murmurs rubs or clicks Abdomen is distended secondary to body habitus soft nontender no masses positive bowel sounds all 4 quadrants Back: No CVA tenderness no spinous process tenderness from cervical spine thoracic and lumbar spine Skin: Intact no petechiae rash induration ulceration or crepitus Extremities: Left lower extremity, the patient is significantly edematous knee, and lower extremity with pitting edema, no erythema warm to touch decreased range of motion secondary to localized pain cap refill of the digits less than 2 seconds neurosensory intact. Moving all other extremities against resistance cap refill less than 2 seconds neurosensory intact Neuro: Awake alert oriented x3 Glascow coma 15 no focal deficits] Course Quality Measures none Orders Category Date Time Status US venous doppler LE LT Stat Exams 01/30/25 12:47 Completed CBC Stat Lab 01/30/25 12:55 Completed CMP [Comprehensive Metabolic Panel] Stat Lab 01/30/25 12:55 Completed HYDROmorphone INJ [Dilaudid Inj] Med 01/30/25 12:44 Discontinued 1 mg IM X1 ONE Ketorolac Inj [Toradol Inj] Med 01/30/25 12:44 Discontinued 30 mg IM X1 ONE oxyCODONE/APAP 5/325 [Percocet 5/325] Med 01/30/25 16:18 Discontinued 1 tab PO X1 ONE Vital Signs Vital signs: Vital Signs Temperature 98.1 F 01/30/25 12:26 Pulse Rate 89 01/30/25 12:26 Respiratory Rate 19 01/30/25 12:26 Blood Pressure 129/86 H 01/30/25 12:26 Pulse Oximetry (%) 99 01/30/25 12:26 Oxygen Delivery Method Room Air 01/30/25 12:26 MDM Patient data External records reviewed:: [facility] previous records Clinical information provided by:: patient Social determinants that could affect healthcare access:: none Patient has the following chronic illnesses:: Chronic pain recent meniscal tear surgery in the left knee. How is presenting disease/condition affected by chronic disease/condition?: uneffected by Evaluation data The following diagnostics were reviewed and interpreted by me:: lab results and radiology exam(s) Lab and/or radiology exams considered but not ordered:: Ultrasound the left lower leg is negative for DVT CBC shows no acute leukocytosis anemia thrombocytopenia CMP shows no acute electrolyte imbalances renal impairment transaminitis or T. bili elevation the mildly elevated glucose Interpretation Summary: Lower extremity edema that is noncritical at this time. Patient is a chronic pain management patient is I discussed the patient's and she has an appointment with Dr.'s Shirley Moralez, the orthopedic surgeon in 4 days. Medications Medications considered but not ordered:: None Medication administrations:: Medication Administration History Discontinued Medications Hydromorphone HCl (Hydromorphone Inj 2 Mg/Ml Vial) 1 mg IM X1 ONE Stop: 01/30/25 12:45 Last Admin: 01/30/25 13:07 Dose: 1 mg Documented By: LINDEN Ketorolac Tromethamine (Ketorolac Inj 60 Mg/2 Ml Vial) 30 mg IM X1 ONE Stop: 01/30/25 12:45 Last Admin: 01/30/25 13:06 Dose: 30 mg Documented By: LINDEN Oxycodone/Acetaminophen (Oxycodone/Apap 5/325 Tablet) 1 tab PO X1 ONE Stop: 01/30/25 16:19 None Consultations Consultation(s) initiated? (list below): No Diagnosis Differential Diagnosis ED Complaint MDM: DVT cellulitis abscess of the left lower leg Most likely diagnosis given after review of the tests above:: Left lower leg pitting edema and pain Admission Indicated Admission indicated?: not indicated Explain why admission is indicated or not indicated:: Stable for outpatient follow-up Admission Request Was there a request for admission?: No Disposition Plan Disposition Plan: Discharge Discharge Attestation Discharge Attestation: The patient and all family members were given an opportunity to ask questions and understood the discharge instructions. Discharge instructions specifically effects, indications for sooner follow up or return to the emergency department, and the expected course of current diagnosis. Patient condition: Stable Medical Decision Making Differential Diagnosis Differential Diagnosis: DVT cellulitis abscess of the left lower leg Lab Data 01/30/25 12:55 01/30/25 12:55 Labs: Lab Results 01/30/25 Range/Units 12:55 WBC 8.4 (3.6-11.0) Thou/mm3 RBC 4.11 (4.00-5.20) Miln/mm3 Hgb 10.9 L (12.0-16.0) g/dL Hct 34.4 L (36.0-46.0) % MCV 84 (80-100) fL MCH 26.5 (25.0-35.0) pg MCHC 31.7 (31.0-37.0) g/dl RDW Std Deviation 43.4 (36.4-46.3) fL Plt Count 468 H D (140-440) Thou/mm3 Neut % (Auto) 68 (37-80) % Lymph % (Auto) 22 (10-50) % Trinity % (Auto) 6 (0-12) % Eos % (Auto) 3 (0-10) % Baso % (Auto) 0 (0-2.5) % Neut # (Auto) 5.7 (1.8-7.7) Thou/mm3 Lymph # (Auto) 1.9 (1.0-4.8) Thou/mm3 Trinity # (Auto) 0.5 (0.0-0.8) Thou/mm3 Eos # (Auto) 0.3 (0.0-0.5) Thou/mm3 Baso # (Auto) 0.0 (0.0-0.2) Thou/mm3 Immature Gran # (Auto) 0.04 H (0.00-0.00) Thou/mm3 Absolute Nucleated RBC 0.00 (0.00-0.00) Thou/mm3 Immature Gran % 1 H (0-0) % Nucleated RBC % 0 (0) /100 WBC Sodium 139 (136-145) mMol/L Potassium 4.8 (3.4-5.1) mMol/L Chloride 102 (98-107) mMol/L Carbon Dioxide 26.7 (20.0-31.0) mMol/L Anion Gap 10 (7-16) BUN 27 H (9-23) mg/dL Creatinine 1.5 H D (0.6-1.3) mg/dL Estim Creat Clear Calc 56.1 L (>60) mL/min eGFR 42 L (60 - ) See Note BUN/Creatinine Ratio 18 (12-20) Ratio Glucose 316 H D (74-106) mg/dL Calculated Osmolality 294 (275-295) Calcium 9.9 (8.3-10.6) mg/dL Corrected Calcium 9.9 (8.5-10.1) mg/dL Total Bilirubin 0.2 L (0.3-1.2) mg/dL AST 10 (0-34) U/L ALT 10 (10-49) U/L Alkaline Phosphatase 158 H D (46-116) U/L Total Protein 7.9 (5.7-8.2) gm/dL Albumin 4.7 (3.5-5.0) gm/dL Globulin 3.2 (2.3-3.5) gm/dL Albumin/Globulin Ratio 1.5 (1.2-2.2) Discharge Plan Plan Patient Disposition: HOME (Self Care) Patient condition on transfer: Stable Prescriptions/Referrals Prescriptions/Med Rec: No Action metoprolol tartrate 50 mg Tablet 50 mg PO BID hydrocodone-acetaminophen 10-325 mg Tablet 1 tab PO BID Rx Instructions: Take 1/2 tablet by mouth every 6 hours as needed for pain for 30 days tizanidine [Zanaflex] 4 mg Capsule 4 mg PO HS clopidogrel 75 mg Tablet 75 mg PO DAILY Qty: 30 0RF aspirin 81 mg tablet,delayed release (DR/EC) 81 mg PO QDAY Qty: 30 0RF pregabalin [Lyrica] 200 mg Capsule 200 mg PO QDAY promethazine 25 mg Tablet 25 mg PO BID insulin lispro [Admelog SoloStar U-100 Insulin] 100 unit/mL Insulin Pen 15 unit SUBCUT TID insulin glargine [Basaglar KwikPen U-100 Insulin] 100 unit/mL (3 mL) Insulin Pen 50 unit SUBCUT QPM fluticasone propion-salmeterol [Advair Diskus] 250-50 mcg/dose Blister With Device 1 inh INHALATION BID sennosides [Senokot] 8.6 mg Tablet 8.6 mg PO BID famotidine 40 mg Tablet 40 mg PO HS meloxicam 7.5 mg Tablet 7.5 mg PO QDAY isosorbide mononitrate 60 mg Tablet Extended Release 24 Hr 60 mg PO QDAY metoclopramide HCl [Reglan] 5 mg Tablet 5 mg PO QID pantoprazole [Protonix] 40 mg Tablet,Delayed Release (Dr/Ec) 40 mg PO QDAY ergocalciferol (vitamin D2) [Vitamin D2] 1,250 mcg (50,000 unit) Capsule 1,250 mcg PO QWEEK albuterol sulfate [Ventolin HFA] 90 mcg/actuation Hfa Aerosol Inhaler 1 puff INHALATION QID PRN (Reason: sob) duloxetine [Cymbalta] 60 mg Capsule,Delayed Release(Dr/Ec) 120 mg PO QDAY Ozempic 2 mg/dose (8 mg/3 mL) Pen Injector 2 mg SUBCUT QWEEK atorvastatin 40 mg Tablet 40 mg PO QDAY amlodipine [Norvasc] 5 mg Tablet 5 mg PO QDAY omeprazole 20 mg Capsule,Delayed Release(Dr/Ec) 20 mg PO BID meclizine 25 mg tablet 25 mg PO HS montelukast 10 mg Tablet 10 mg PO QDAY ranolazine 500 mg Tablet Extended Release 12 Hr 500 mg PO QDAY nitroglycerin 0.4 mg tablet, sublingual 0.4 mg BUCCAL [id number] PRN (Reason: chest pain) Patient Comments: DISSOLVE 1 TABLET UNDER THE TONGUE EVERY 5 MINUTES UP TO THREE DOSES NEEDED FOR CHEST PAIN. CALL 911 IF NO RELIEF glyburide 1.25 mg tablet 1.25 mg PO QDAY Referrals: Beba Moon BOAT JOINER [Primary Care Provider] - In 1 week Problem List Clinical Impression: Lower extremity pain, Edema of lower extremity Patient/Caregiver Discharge Instructions Education Materials: ED Leg Swelling in a Single Leg Additional Instructions: Keep the leg highly elevated, follow-up with Dr. Lester. As stated. If there is a worsening of symptoms including a fever or red streaks on the leg return to the emergency room for reevaluation. Print Language: Macedonian Stand Alone Forms: [employer] Award Info., Work/School Release, Patient Portal Info Letter PA/BOAT JOINER Supervising Physician PA/BOAT JOINER Supervising Physician: Piter Ray ENP
== END 2025-01-30 16:47 | disposition home or self-care (01) ==
PROVIDERS: Nurse Practitioner Family; Emergency Provider Emergency Medicine; PCP Registered Nurse Community Health
DX: M79.662 Pain in left lower leg (principal); R60.0 Localized edema; G89.29 Other chronic pain; I25.10 Atherosclerotic heart disease of native coronary artery without angina pectoris; E11.9 Type 2 diabetes mellitus without complications; E66.9 Obesity, unspecified; Z68.35 Body mass index [BMI] 35.0-35.9, adult
CPT/HCPCS: 36415; 80053; 85025; 93971; 96372; 99284; J1885; J3490

== ENCOUNTER 2025-02-04 10:11 | Emergency (ER) | payer MEDICARE, MEDICAID, SELFPAY ==
[2025-02-04 10:15] VITALS: PULSE 107; RESP 18; O2SAT 98
--- NOTE | 2025-02-04 10:15 | PC.NURSE ---
Patient placed in rigid cervical collar do to c/o mid line neck pain.
[2025-02-04 10:18] VITALS: BP 171/96; PULSE 93; RESP 18; TEMP 36.7; O2SAT 98
[2025-02-04 10:21] VITALS: BMI 33.6
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
[2025-02-04] MEDS: DIAZEPAM 5 MG TABLET PO (10:50)
[2025-02-04] MEDS: HYDROcodone/APAP 5/325 TABLET 1 TAB PO (10:50)
[2025-02-04 11:22] LABS: Collection Type, Urine Clean Catch
[2025-02-04 11:36] LABS: Bilirubin,Urine Negative (Negative); Blood,Urine Negative (Negative); Clarity,Urine Clear (Clear/Hazy); Color,Urine Lt-Yellow (Lt Yel-Yel); Culture Indicated,Urine Not Indicated; Glucose, Urine 4+ (Negative); Ketones,Urine Negative (Negative); Leukocyte Esterase,Urine Negative (Negative); Nitrite,Urine Negative (Negative); PH,Urine 5.5 (5.0-7.0); Protein,Urine 1+ (Neg - Trace); RBC,Urine < 1 /hpf (0-3); Specific Gravity,Urine 1.021 (1.001-1.035); Squamous Epithelial Cell,Urine 1 /hpf (0-5); Urobilinogen,Urine Negative mg/dL (0.0-1.0); WBC,Urine 1 /hpf (0-5)
[2025-02-04 11:38] LABS: HCG Qualitative,Urine Negative
[2025-02-04 12:32] VITALS: BP 182/112; PULSE 87; RESP 18; TEMP 36.4; O2SAT 100
--- NOTE | 2025-02-04 13:15 | PC.NURSE ---
PATIENT STATES PAIN 9/10. INFORMED ER PROVIDER AND RECEIVED VERBAL ORDER FOR NORCO 10.
[2025-02-04] MEDS: HYDROcodone/APAP 10/325 TAB PO (13:27)
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
[2025-02-04 15:05] VITALS: BP 144/95; PULSE 80; RESP 18; TEMP 36.4; O2SAT 100
--- NOTE | 2025-02-04 15:38 | PC.NURSE ---
RECEIVED VERBAL ORDER FROM ER PROVIDER FOR 5 MG CYCLOBENZAPRINE PO
[2025-02-04] MEDS: CYCLObenzaPRINE 5 MG TABLET PO (15:41)
== END 2025-02-04 16:21 | disposition home or self-care (01) ==
PROVIDERS: Emergency Provider Emergency Medicine; PCP Registered Nurse Community Health
DX: S39.012A Strain of muscle, fascia and tendon of lower back, initial encounter (principal); M54.2 Cervicalgia; M25.562 Pain in left knee; G89.29 Other chronic pain; E11.42 Type 2 diabetes mellitus with diabetic polyneuropathy; I10 Essential (primary) hypertension; E78.5 Hyperlipidemia, unspecified; I25.2 Old myocardial infarction; Z95.5 Presence of coronary angioplasty implant and graft; Z86.73 Personal history of transient ischemic attack (TIA), and cerebral infarction without residual deficits; V53.6XXA Passenger in pick-up truck or van injured in collision with car, pick-up truck or van in traffic accident, initial encounter; Y92.410 Unspecified street and highway as the place of occurrence of the external cause
CPT/HCPCS: 51701; 70450; 72125; 72128; 72131; 81001; 81025; 99284; A9270

== ENCOUNTER 2025-02-10 18:01 | Emergency (ER) | payer MEDICARE, MEDICAID, SELFPAY ==
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
[2025-02-10 18:40] VITALS: BP 182/94; PULSE 89; RESP 18; TEMP 37; O2SAT 99; BMI 33.6
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
[2025-02-10] MEDS: HYDROcodone/APAP 5/325 TABLET 1 TAB PO (19:13)
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
== END 2025-02-10 22:07 | disposition home or self-care (01) ==
PROVIDERS: Emergency Provider Emergency Medicine; PCP Registered Nurse Community Health
DX: S83.105A Unspecified dislocation of left knee, initial encounter (principal); S80.12XA Contusion of left lower leg, initial encounter; S90.02XA Contusion of left ankle, initial encounter; S90.32XA Contusion of left foot, initial encounter; V89.9XXA Person injured in unspecified vehicle accident, initial encounter
CPT/HCPCS: 73562; 73610; 73630; 93971; 99284; A9270

== ENCOUNTER → 2025-02-17 | Outpatient (CLI) | payer MEDICARE, MEDICAID, SELFPAY ==
--- NOTE | 2025-02-17 14:38 | XR_ITS ---
Examination: Knee, left , 3 views Technique: Knee AP, lateral, oblique 3 views Date and time of exam: February 10, 2025 at 1441 hours INDICATIONS: Knee pain months FINDINGS: There is widening of the medial joint space and medial mild subluxation of the femoral condyles relative to the tibial plateau, advanced narrowing lateral joint space Large knee effusion No fracture IMPRESSION: Widening of the medial joint space and mild medial subluxation of the femoral condyles relative to the tibial plateau, consider incompetent medial collateral ligament Consider MRI knee without contrast follow-up
== END | disposition home or self-care (01) ==
LOC: CDIM 14:30
PROVIDERS: PCP Registered Nurse Community Health; Referring Provider Orthopaedic Surgery; Visit Provider Orthopaedic Surgery
DX: S83.192A Other subluxation of left knee, initial encounter (principal); X58.XXXA Exposure to other specified factors, initial encounter; Z98.890 Other specified postprocedural states
CPT/HCPCS: 73562

== ENCOUNTER 2025-06-11 14:09 | Emergency (ER) | payer MEDICARE, MEDICAID, SELFPAY ==
[2025-06-11 14:10] VITALS: BMI 34.4
[2025-06-11 14:59] VITALS: BP 94/54; PULSE 99; RESP 18; TEMP 36.3; O2SAT 100
--- NOTE | 2025-06-11 15:10 | PD.EDEXREM ---
ED Extremity Problem RME/HPI General Chief complaint: Extremity Problem,Nontraumatic Stated complaint: LEFT LEG PAIN AND SWELLING Time Seen by Provider: 06/11/25 14:41 Arrival date/time: 06/11/25 14:09 This is a 50-year-old female that comes into the emergency room with complaints of left leg pain and swelling. Patient states she has seen a surgeon in [facility]. Patient scheduled to have an MRI done next week. Patient states that on approximately 05/21/2025 she had some fluid drained from her knee. Patient states that she wanted to come back and have more fluid drained. Patient has no new swelling. Patient states that swelling is the same. She has a follow-up appointment also with her surgeon. Related Data Home Medications ?Medication ?Instructions ?Recorded ?Confirmed metoprolol tartrate 50 mg tablet 50 mg PO BID 04/06/18 01/06/25 hydrocodone 10 mg-acetaminophen 1 tab PO BID 08/01/21 01/06/25 325 mg tablet tizanidine 4 mg capsule (Zanaflex) 4 mg PO HS 01/27/22 01/06/25 semaglutide 2 mg/dose (8 mg/3 mL) 2 mg subcut QWEEK 01/07/23 01/06/25 subcutaneous pen injector (Ozempic) amlodipine 5 mg tablet (Norvasc) 5 mg PO QDAY 04/02/24 01/06/25 atorvastatin 40 mg tablet 40 mg PO QDAY 04/02/24 01/06/25 meclizine 25 mg tablet 25 mg PO HS 04/02/24 01/06/25 montelukast 10 mg tablet 10 mg PO QDAY 04/02/24 01/06/25 omeprazole 20 mg capsule,delayed 20 mg PO BID 04/02/24 01/06/25 release ranolazine 500 mg tablet,extended 500 mg PO QDAY 04/02/24 01/06/25 release,12 hr pregabalin 200 mg capsule (Lyrica) 200 mg PO QDAY 04/11/24 01/06/25 albuterol sulfate 90 mcg/actuation 1 puff inhalation QID PRN sob 08/11/24 01/06/25 aerosol inhaler (Ventolin HFA) duloxetine 60 mg capsule,delayed 120 mg PO QDAY 08/11/24 01/06/25 release (Cymbalta) ergocalciferol (vitamin D2) 1,250 1,250 mcg PO QWEEK 08/11/24 01/06/25 mcg (50,000 unit) capsule (Vitamin D2) famotidine 40 mg tablet 40 mg PO HS 08/11/24 01/06/25 fluticasone 250 mcg-salmeterol 50 1 inh inhalation BID 08/11/24 01/06/25 mcg/dose blistr powdr for inhalation (Advair Diskus) insulin glargine 100 unit/mL (3 50 unit subcut QPM 08/11/24 01/06/25 mL) subcutaneous pen (Basaglar KwikPen U-100 Insulin) insulin lispro 100 unit/mL 15 unit subcut TID 08/11/24 01/06/25 subcutaneous pen (Admelog SoloStar U-100 Insulin lispro) isosorbide mononitrate 60 mg 60 mg PO QDAY 08/11/24 01/06/25 tablet,extended release 24 hr meloxicam 7.5 mg tablet 7.5 mg PO QDAY 08/11/24 01/06/25 metoclopramide HCl 5 mg tablet 5 mg PO QID 08/11/24 01/06/25 (Reglan) pantoprazole 40 mg tablet,delayed 40 mg PO QDAY 08/11/24 01/06/25 release (Protonix) promethazine 25 mg tablet 25 mg PO BID 08/11/24 01/06/25 sennosides 8.6 mg tablet (Senokot) 8.6 mg PO BID 08/11/24 01/06/25 glyburide 1.25 mg tablet 1.25 mg PO QDAY 01/05/25 01/06/25 nitroglycerin 0.4 mg sublingual 0.4 mg buccal [id number] PRN chest 01/05/25 01/06/25 tablet pain Previous Rx's ?Medication ?Instructions ?Recorded aspirin 81 mg tablet,delayed 81 mg PO QDAY #30 tabs 11/17/22 release clopidogrel 75 mg tablet 75 mg PO DAILY #30 tabs 11/17/22 Allergies Allergy/AdvReac Type Severity Reaction Status Date / Time No Known Allergies Allergy Verified 06/11/25 14:10 Review of Systems Review of Systems Systems Reviewed: All systems reviewed, normal except as documented Past Medical History Past Medical History NEUROLOGIC: Positive Neurological Disorders, Cerebrovascular Accident, Peripheral Neuropathy and Migraine; Negative Transient Ischemic Attacks (TIA), Dementia, Alzheimer's Disease, Parkinson's Disease, Brain Tumor, Meningitis, Seizures, Epilepsy, Multiple Sclerosis, Cerebral Palsy, Amyotrophic Lateral Sclerosis (ALS/[place]ajo Gehrig's), Guillain-Trent Syndrome, Spina Bifida, Paralysis, Damon's Palsy, Subdural Hematoma, Head Trauma, Spinal Cord Injury or Traumatic Brain Injury CARDIAC: Positive Cardiac Disorders, Myocardial Infarction, Cardiac Arrhythmia, Angina, Coronary Artery Disease, Atherosclerotic Heart Disease, Hypercholesterolemia and Hypertension; Negative Atrial Fibrillation, Heart Murmur, Peripheral Vascular Disease, Aneurysm, Congestive Heart Failure, Congenital Heart Disease, Valvular Heart Disease, Rheumatic Fever, Cardiomyopathy, Edema, Pericarditis, Cellulitis, Deep Vein Thrombosis, Hypotension or Varicose Veins RESPIRATORY: Positive Asthma; Negative Chronic Obstructive Pulmonary Disease (COPD), Bronchitis, Emphysema, Pneumonia, Pulmonary Fibrosis, Cystic Fibrosis, Tuberculosis, Pulmonary Embolism, Pulmonary Edema or Sleep Apnea GASTROINTESTINAL: Positive Gastrointestinal Disorders, Gastroesophageal Reflux Disease and Obesity; Negative Hepatitis, Cirrhosis, Pancreatitis, Celiac Disease, Gall Bladder Disease, Gastrointestinal Bleed, Esophageal Varices, Henao's Esophagus, Colitis, Ulcerative Colitis, Diverticulitis, Diverticulosis, Ulcer, Colorectal Cancer, Irritable Bowel, Crohn's Disease, Obstructive Bowel, Hiatal Hernia or Hemorrhoids GENITOURINARY: Positive Genitourinary Disorders and Renal Disease; Negative Kidney Stones, Polycystic Kidney Disease, Neurogenic Bladder, Inguinal Hernia, Dialysis, Prostate Cancer or Benign Prostatic Hyperplasia REPRODUCTIVE: Negative Breast Cancer, Endometriosis, Genital Herpes, Gonorrhea, Pelvic Inflammatory Disease, Previous Pregnancies, Syphilis, Testicular Cancer or Uterine Prolapse MUSCULOSKELETAL: Positive Musculoskeletal Disorders, Arthritis, Degenerative Disk Disease and Fibromyalgia; Negative Muscular Dystrophy, Myasthenia Gravis, Marfan's Syndrome, Bone Cancer, Rheumatoid Arthritis, Osteoporosis, Gout, Scoliosis, Carpal Tunnel Syndrome, Fractures, Degenerative Joint Disease, Osteomyelitis or Poliovirus ENT: Negative Cataracts, Glaucoma, Blind, Retinal Detachment, Macular Degeneration, Ear Infection, Deafness, Head Trauma or Eye Prosthesis ENDOCRINE: Positive Endocrine Disorders and Diabetes Mellitus Type 2; Negative Diabetes Mellitus Type 1, Hypoglycemia, Price's Syndrome, [place]'s Disease, Hyperthyroidism, Hypothyroidism, Parathyroid Disease, Pituitary Disease, Systemic Lupus Erythematosus, Syndrome of Inappropriate Antidiuretic Hormone (SIADH), Adrenal Disease or Graves' Disease HEMATOLOGIC: Negative Blood Disorders, Anemia, Leukemia, Hemophilia, Thalassemia, Sickle Cell Disease or Clotting Problems PSYCHO/SOCIAL: Positive Depression and Anxiety; Negative Psychiatric Problems, Schizophrenia, Recreational Drug Use, Bipolar Disorder, Behavior Problems, Self-Mutilation, Attention Deficit Disorder, Attention Deficit Hyperactivity Disorder, Depression, Post Traumatic Stress Disorder or Eating Disorder OTHER HISTORY: Positive Hospitalization; Negative Autoimmune Disease, Down Syndrome, Autism, Developmental Delay, Shingles, Falls, Blood Transfusions, Blood Transfusion Reaction, Anesthesia Reactions, Organ Transplant, Chemotherapy, Radiation Therapy, Hyperbaric Therapy, MRSA, VRSA, Vancomycin-Resistant Enterococci, Human Immunodeficiency Virus (HIV), Chicken Pox, Measles, Mumps, Rubella (Irish Measles), Pertussis, Clostridium Difficile, Cancer, Breast Cancer, Cervical Cancer, Colorectal Cancer, Lung Cancer, Ovarian Cancer, Prostate Cancer or Testicular Cancer Family History FAMILY HISTORY: Positive Family Respiratory Disorders, Family Cardiac Disorders, Family Gastrointestinal Problems, Family Cancer and Family Surgery; Negative Family Psychiatric Problems or Family Anesthesia Reaction Surgical History SURGICAL: Positive Cardiac Surgery, Coronary Stent, Angiogram, Abdominal Surgery and Arthroscopy; Negative Open Heart Surgery, Coronary Artery Bypass Graft, Valve Replacement, Vascular Surgery, Cardiac Catheterization, Pacemaker, Auto Implanted Cardiovert Defib, Carotid Endarterectomy, Endocrine Surgery, Thyroidectomy, Ear Surgery, Tympanostomy Tube, Eye Surgery, Nose Surgery, Oral Surgery, Tonsillectomy, Adenoidectomy, Cochlear Implant, Corneal Transplant, Throat Surgery, Tracheostomy, Gastric Bypass Surgery, Gastrostomy, Bowel Surgery, Nephrectomy, Transurethral Resection, Joint Replacement, Amputation, Open Reduction Internal Fixation, Neurologic Surgery, Brain Shunt, Mastectomy, Lumpectomy, Hysterectomy, Tubal Ligation, Section, Vasectomy or Organ Transplant Social History SMOKING STATUS: Never smoker SUBSTANCE USE: does not use ED Exam Narrative Physical exam: VITAL SIGNS: Reviewed. GENERAL APPEARANCE: Alert and interactive, follows commands, no acute distress HEAD AND FACE: Non-traumatic. ENT: PERRL, conjuctiva pink and clear, eyelid no trauma, Mucous membrane moist. NECK: Supple, nontender, no nuchal rigidity. CHEST: No tenderness, no crepitus, no paradoxical movement, no retractions. LUNGS: breathing even and unlabored HEART: Regular rate, cap refill less than 2 seconds ABDOMEN: Soft, nondistended, no guarding, nontender, no rebound, no masses, NEUROLOGICAL: Gross motor function intact sensory function intact, Appropriate for age. MUSCULOSKELETAL: low back nontender, full range of motion. left leg generlized swelling, no erythema EXTREMITIES: No redness no swelling no skin breakdown on bilateral foot and leg. Distal neurovascular status intact bilateral foot SKIN: Color pink, dry, no rash, no lacerations, no abrasions, no contusions. Course Quality Measures none Orders Category Date Time Status keira wrap [Splint / Immobilizer] STAT Care 06/11/25 16:32 Completed HYDROmorphone INJ [Dilaudid Inj] Med 06/11/25 15:11 Discontinued 0.5 mg IVP X1 ONE Ketorolac Inj [Toradol Inj] Med 06/11/25 15:11 Discontinued 60 mg IM X1 ONE Ketorolac Inj [Toradol Inj] Med 06/11/25 15:51 Discontinued 60 mg IM X1 ONE Morphine Inj Med 06/11/25 15:51 Discontinued 5 mg IM X1 ONE Ondansetron Odt [Zofran Odt] Med 06/11/25 15:11 Discontinued 4 mg PO X1 ONE Vital Signs Vital signs: Vital Signs Temperature 97.4 F 06/11/25 14:59 Pulse Rate 99 06/11/25 14:59 Respiratory Rate 18 06/11/25 14:59 Blood Pressure 94/54 L 06/11/25 14:59 Pulse Oximetry (%) 100 06/11/25 14:59 Oxygen Delivery Method Room Air 06/11/25 14:59 Extremity Problem MDM Narrative MDM Narrative:: I spoke to patient at length. I let her know that she just had fluid removed from her knee by her surgeon and has a follow-up appointment next week. I was going to hold off on removing any fluid. Patient has no new trauma. Patient denies falls. Patient denies new swelling. NO fevers or erythema. Do not suspect acute infection. Will treat patient with pain medication. Patient told to follow-up with primary provider in 1 to 2 days. Come back to the emergency room symptoms change or worsen. Patient given a dose of Dilaudid and Toradol with Zofran. Patient data External records reviewed:: [facility] previous records Clinical information provided by:: patient Social determinants that could affect healthcare access:: none Patient has the following chronic illnesses:: none How is presenting disease/condition affected by chronic disease/condition?: no chronic disease Evaluation data The following diagnostics were reviewed and interpreted by me:: other (specify) (none) Lab and/or radiology exams considered but not ordered:: none Interpretation Summary: see note Medications / Prescriptions Medications or Prescriptions considered but not ordered:: none Medication administrations:: Medication Administration History Discontinued Medications Hydromorphone HCl (Hydromorphone Inj 2 Mg/Ml Vial) 0.5 mg IVP X1 ONE Stop: 06/11/25 15:12 Last Admin: 06/11/25 16:57 Dose: Not Given Documented By: LINDEN Non-Admin Reason: Cancelled by Provider Ketorolac Tromethamine (Ketorolac Inj 60 Mg/2 Ml Vial) 60 mg IM X1 ONE Stop: 06/11/25 15:12 Last Admin: 06/11/25 16:57 Dose: Not Given Documented By: LINDEN Non-Admin Reason: Cancelled by Provider Ketorolac Tromethamine (Ketorolac Inj 60 Mg/2 Ml Vial) 60 mg IM X1 ONE Stop: 06/11/25 15:52 Last Admin: 06/11/25 16:59 Dose: 60 mg Documented By: LINDEN Morphine Sulfate (Morphine Sulf Inj 10 Mg/Ml Vial) 5 mg IM X1 ONE Stop: 06/11/25 15:52 Last Admin: 06/11/25 16:57 Dose: 5 mg Documented By: LINDEN Ondansetron HCl (Ondansetron Odt 4 Mg Tabrap) 4 mg PO X1 ONE; Protocol Stop: 06/11/25 15:12 Last Admin: 06/11/25 16:59 Dose: 4 mg Documented By: LINDEN see mar Consultations Consultation(s) initiated? (list below): No Diagnosis Most likely diagnosis given after review of the tests above:: chronic knee pain, chronic leg swelling Admission Indicated Admission indicated?: not indicated Admission Request Was there a request for admission?: No Disposition Plan Disposition Plan: Discharge Discharge Attestation Discharge Attestation: The patient and all family members were given an opportunity to ask questions and understood the discharge instructions. Discharge instructions specifically effects, indications for sooner follow up or return to the emergency department, and the expected course of current diagnosis. Patient condition: Stable Discharge Plan Plan Patient Disposition: HOME (Self Care) Patient condition on transfer: Stable Prescriptions/Referrals Prescriptions/Med Rec: No Action metoprolol tartrate 50 mg Tablet 50 mg PO BID hydrocodone-acetaminophen 10-325 mg Tablet 1 tab PO BID Rx Instructions: Take 1/2 tablet by mouth every 6 hours as needed for pain for 30 days tizanidine [Zanaflex] 4 mg Capsule 4 mg PO HS clopidogrel 75 mg Tablet 75 mg PO DAILY Qty: 30 0RF aspirin 81 mg tablet,delayed release (DR/EC) 81 mg PO QDAY Qty: 30 0RF pregabalin [Lyrica] 200 mg Capsule 200 mg PO QDAY promethazine 25 mg Tablet 25 mg PO BID insulin lispro [Admelog SoloStar U-100 Insulin] 100 unit/mL Insulin Pen 15 unit SUBCUT TID insulin glargine [Basaglar KwikPen U-100 Insulin] 100 unit/mL (3 mL) Insulin Pen 50 unit SUBCUT QPM fluticasone propion-salmeterol [Advair Diskus] 250-50 mcg/dose Blister With Device 1 inh INHALATION BID sennosides [Senokot] 8.6 mg Tablet 8.6 mg PO BID famotidine 40 mg Tablet 40 mg PO HS meloxicam 7.5 mg Tablet 7.5 mg PO QDAY isosorbide mononitrate 60 mg Tablet Extended Release 24 Hr 60 mg PO QDAY metoclopramide HCl [Reglan] 5 mg Tablet 5 mg PO QID pantoprazole [Protonix] 40 mg Tablet,Delayed Release (Dr/Ec) 40 mg PO QDAY ergocalciferol (vitamin D2) [Vitamin D2] 1,250 mcg (50,000 unit) Capsule 1,250 mcg PO QWEEK albuterol sulfate [Ventolin HFA] 90 mcg/actuation Hfa Aerosol Inhaler 1 puff INHALATION QID PRN (Reason: sob) duloxetine [Cymbalta] 60 mg Capsule,Delayed Release(Dr/Ec) 120 mg PO QDAY Ozempic 2 mg/dose (8 mg/3 mL) Pen Injector 2 mg SUBCUT QWEEK atorvastatin 40 mg Tablet 40 mg PO QDAY amlodipine [Norvasc] 5 mg Tablet 5 mg PO QDAY omeprazole 20 mg Capsule,Delayed Release(Dr/Ec) 20 mg PO BID meclizine 25 mg tablet 25 mg PO HS montelukast 10 mg Tablet 10 mg PO QDAY ranolazine 500 mg Tablet Extended Release 12 Hr 500 mg PO QDAY nitroglycerin 0.4 mg tablet, sublingual 0.4 mg BUCCAL [id number] PRN (Reason: chest pain) Patient Comments: DISSOLVE 1 TABLET UNDER THE TONGUE EVERY 5 MINUTES UP TO THREE DOSES NEEDED FOR CHEST PAIN. CALL 911 IF NO RELIEF glyburide 1.25 mg tablet 1.25 mg PO QDAY Problem List Clinical Impression: Chronic pain of left knee Patient/Caregiver Discharge Instructions Discharge Activity: activity as tolerated Education Materials: Knee Pain, ED RICE Additional Instructions: Follow up with primary provider in 1-2 days. Come back to ED if symptoms change or worsen Print Language: [place] Stand Alone Forms: Sapna Award Info., Patient Portal Info Letter PA/ADVERTISING MANAGER Supervising Physician PA/ADVERTISING MANAGER Supervising Physician: jackie
[2025-06-11] MEDS: MORPHINE SULF INJ 10 MG/ML VIAL 5 MG IM (16:57)
[2025-06-11] MEDS: KETOROLAC INJ 60 MG/2 ML VIAL IM (16:59)
[2025-06-11] MEDS: ONDANSETRON ODT 4 MG TABRAP PO (16:59)
== END 2025-06-11 17:05 | disposition home or self-care (01) ==
LOC: SERX 17:18
PROVIDERS: Emergency Provider Emergency Medicine; PCP Registered Nurse Community Health
DX: G89.29 Other chronic pain (principal); M25.562 Pain in left knee
CPT/HCPCS: 96372; 99283; J1885; J2270; Q0162

== ENCOUNTER 2025-10-15 03:04 | Emergency (ER) | payer MEDICARE, MEDICAID, SELFPAY ==
[2025-10-15] VITALS (83 sets, daily range): BP systolic 77–200; BP diastolic 41–108; PULSE 75–109; RESP 8–92; TEMP 36.6–37.9; O2SAT 87–100; BMI 36.8
--- NOTE | 2025-10-15 04:10 | XR_ITS ---
EXAMINATION: Left knee 2 views TECHNIQUE: AP lateral left knee 2 views INDICATIONS: Left knee weakness and swelling 1 week, post surgery left knee at [facility] 1 week ago FINDINGS: Catheter in the soft tissue lateral to the distal femur which projects on the lateral view in the suprapatellar joint space Moderate knee effusion Drain also in the soft tissue posterior to the distal femur depicted on the lateral and AP view No fracture No cortical bone destruction Significant narrowing lateral joint space No kim cortical bone destruction IMPRESSION: Catheter drains as above Moderate knee effusion No cortical bone destruction
--- NOTE | 2025-10-15 04:10 | XR_ITS ---
Examination: Tibia-Fibula, left, 2 views Technique: Tibia-fibula AP lateral 2 views Date and time of exam: October 15, 2025, 0507 hours INDICATIONS: Left lower leg pain beginning 1 week ago, post knee surgery 1 week ago FINDINGS: Drain overlies the distal femur Surgical clip posterior upper aspect of the lower leg on the lateral view No fracture No cortical bone destruction Moderate narrowing lateral joint space IMPRESSION: No fracture No cortical bone destruction
--- NOTE | 2025-10-15 04:10 | PD.EDEXREM ---
ED Extremity Problem RME/HPI General Chief complaint: Extremity Problem,Nontraumatic Stated complaint: WEAKNESS Time Seen by Provider: 10/15/25 03:22 Arrival date/time: 10/15/25 03:04 Mode of arrival: EMS RME / HPI MD Complaint: extremity pain, extremity swelling and joint swelling Consistency: constant Location: left, lower extremity and knee Severity scale (1-10): 10 Relieving factors: medication Exacerbating factors: weight bearing, walking and exertion Context: recent surgery/procedure RME / HPI Narrative: Dr. Ceballos?s Main ED Evaluation: 50 y/o female with Hx of CAD, Atherosclerotic Heart Disease, Obesity, Renal Disease, Arthritis, and Diabetes Mellitus Type 2 BIBA from home presents to ED c/o LLE pain and swelling with s/p multiple procedures to the left knee. Patient underwent arthroscopy at [facility] in December [address] Cortes. Removal of dempsey cyst was performed on 06/26/2025, during that surgery they found 2 holes at the back of her knee . Third surgery to repair the holes found at the back of the knee was performed by Dr. Puente on 10/02/2025. Patient has a F/U appointment with Dr. Puente on 10/24/2025. Related Data Home Medications ?Medication ?Instructions ?Recorded ?Confirmed metoprolol tartrate 50 mg tablet 50 mg PO BID 04/06/18 01/06/25 hydrocodone 10 mg-acetaminophen 1 tab PO BID 08/01/21 01/06/25 325 mg tablet tizanidine 4 mg capsule (Zanaflex) 4 mg PO HS 01/27/22 01/06/25 semaglutide 2 mg/dose (8 mg/3 mL) 2 mg subcut QWEEK 01/07/23 01/06/25 subcutaneous pen injector (Ozempic) amlodipine 5 mg tablet (Norvasc) 5 mg PO QDAY 04/02/24 01/06/25 atorvastatin 40 mg tablet 40 mg PO QDAY 04/02/24 01/06/25 meclizine 25 mg tablet 25 mg PO HS 04/02/24 01/06/25 montelukast 10 mg tablet 10 mg PO QDAY 04/02/24 01/06/25 omeprazole 20 mg capsule,delayed 20 mg PO BID 04/02/24 01/06/25 release ranolazine 500 mg tablet,extended 500 mg PO QDAY 04/02/24 01/06/25 release,12 hr pregabalin 200 mg capsule (Lyrica) 200 mg PO QDAY 04/11/24 01/06/25 albuterol sulfate 90 mcg/actuation 1 puff inhalation QID PRN sob 08/11/24 01/06/25 aerosol inhaler (Ventolin HFA) duloxetine 60 mg capsule,delayed 120 mg PO QDAY 08/11/24 01/06/25 release (Cymbalta) ergocalciferol (vitamin D2) 1,250 1,250 mcg PO QWEEK 08/11/24 01/06/25 mcg (50,000 unit) capsule (Vitamin D2) famotidine 40 mg tablet 40 mg PO HS 08/11/24 01/06/25 fluticasone 250 mcg-salmeterol 50 1 inh inhalation BID 08/11/24 01/06/25 mcg/dose blistr powdr for inhalation (Advair Diskus) insulin glargine 100 unit/mL (3 50 unit subcut QPM 08/11/24 01/06/25 mL) subcutaneous pen (Basaglar KwikPen U-100 Insulin) insulin lispro 100 unit/mL 15 unit subcut TID 08/11/24 01/06/25 subcutaneous pen (Admelog SoloStar U-100 Insulin lispro) isosorbide mononitrate 60 mg 60 mg PO QDAY 08/11/24 01/06/25 tablet,extended release 24 hr meloxicam 7.5 mg tablet 7.5 mg PO QDAY 08/11/24 01/06/25 metoclopramide HCl 5 mg tablet 5 mg PO QID 08/11/24 01/06/25 (Reglan) pantoprazole 40 mg tablet,delayed 40 mg PO QDAY 08/11/24 01/06/25 release (Protonix) promethazine 25 mg tablet 25 mg PO BID 08/11/24 01/06/25 sennosides 8.6 mg tablet (Senokot) 8.6 mg PO BID 08/11/24 01/06/25 glyburide 1.25 mg tablet 1.25 mg PO QDAY 01/05/25 01/06/25 nitroglycerin 0.4 mg sublingual 0.4 mg buccal [id number] PRN chest 01/05/25 01/06/25 tablet pain Previous Rx's ?Medication ?Instructions ?Recorded aspirin 81 mg tablet,delayed 81 mg PO QDAY #30 tabs 11/17/22 release clopidogrel 75 mg tablet 75 mg PO DAILY #30 tabs 11/17/22 Allergies Allergy/AdvReac Type Severity Reaction Status Date / Time No Known Allergies Allergy Verified 10/15/25 03:08 Review of Systems Review of Systems Systems Reviewed: All systems reviewed, normal except as documented Past Medical History Past Medical History NEUROLOGIC: Positive Cerebrovascular Accident, Peripheral Neuropathy and Migraine CARDIAC: Positive Myocardial Infarction, Cardiac Arrhythmia, Angina, Coronary Artery Disease, Atherosclerotic Heart Disease, Hypercholesterolemia and Hypertension RESPIRATORY: Positive Asthma GASTROINTESTINAL: Positive Gastrointestinal Disorders, Gastroesophageal Reflux Disease and Obesity GENITOURINARY: Positive Renal Disease MUSCULOSKELETAL: Positive Arthritis, Degenerative Disk Disease and Fibromyalgia ENDOCRINE: Positive Diabetes Mellitus Type 2 PSYCHO/SOCIAL: Positive Depression and Anxiety OTHER HISTORY: Positive Hospitalization Family History FAMILY HISTORY: Positive Family Respiratory Disorders, Family Cardiac Disorders, Family Gastrointestinal Problems, Family Cancer and Family Surgery Surgical History SURGICAL: Positive Cardiac Surgery, Coronary Stent, Angiogram, Abdominal Surgery and Arthroscopy ED Exam Narrative Physical exam: GENERAL APPEARANCE: alert and oriented x 4, well-developed, well-nourished, no acute distress VITALS: All vitals were reviewed and the pulse ox is 95% on room air, which is normal according to my interpretation. HEENT: Normocephalic, atraumatic; pupils equal, round, reactive to light; EOMI; mucous membranes pink, moist; oropharynx clear NECK: Supple LUNGS: CTABL; no wheezes, no rales, no rhonchi HEART: Regular rate, regular rhythm; normal S1, S2; no murmurs ABDOMEN: non distended; normal BS; soft, no tenderness, no guarding, no rebound; no masses, no organomegaly, no hernia BACK: no CVA tenderness EXTREMITIES: Good distal pulses, LLE: surgical drain to the left medial calf draining opaque white and bloody liquid NEUROLOGIC: awake; alert and oriented x4; cranial nerves II-XII grossly intact; no focal sensory or motor deficits PSYCHIATRIC: appropriate mood and affect SKIN: warm, dry, normal color; no rashes Course Course Course Narrative: Sepsis alert initiated. Orders made at this time are congruent with ED Adult Sepsis Order List. Re-evaluation is to be completed. 0600: Care signed out to Dr. Miller. Past medical, surgical, social and family history reviewed. Vitals and home medications reviewed. Results and treatment plan discussed. They will assume the care of the patient at this time and will follow the patient, pending transfer to [facility]. Quality Measures Current suspected stage: sepsis Possible source: bone/joint and skin/soft tissue Blood cultures ordered: yes Antibiotic ordered: Yes Pertinent labs: 10/15/25 04:22 Lactic Acid 1.6 mMol/L (0.4-2.0) Procalcitonin 3.27 H ng/ml (0.0-0.49) sepsis and none Orders Category Date Time Status CT Screening NOW Care 10/15/25 07:11 Completed Philosophy Lecturer STAT Care 10/15/25 04:11 Completed Continuous Pulse Oximetry STAT Care 10/15/25 04:11 Completed EKG (ED ONLY) *Do not use* NOW Care 10/15/25 04:11 Completed Ndiaye [Urinary Catheter] QS Care 10/15/25 04:50 Completed Insert IV NOW Care 10/15/25 04:11 Completed NPO STAT Care 10/15/25 04:11 Completed Strict Intake and Output Routine Care 10/15/25 04:11 Ordered Transfuse,blood/blood products NOW Care 10/15/25 08:36 Completed Referral - Book Coverer Stat Cons 10/15/25 08:31 Active Transfer to another facility [Transfer/Discharge] Stat Discharge 10/15/25 16:[address] lower extremity BI w Stat Exams 10/15/25 07:11 Completed EKG (ED Only) Stat Exams 10/15/25 04:11 Ordered XR chest 1V SEPSIS PROTOCOL Stat Exams 10/15/25 04:13 Completed XR knee limited LT 2V Stat Exams 10/15/25 05:41 Completed XR tibia fibula LT 2V Stat Exams 10/15/25 04:10 Completed B-Type Natriuretic Peptide Stat Lab 10/15/25 04:22 Completed BMP [Basic Metabolic Panel] Stat Lab 10/15/25 07:37 Completed Blood Culture (Lab) Stat Lab 10/15/25 04:25 Completed CBC Stat Lab 10/15/25 04:22 Completed CBC Stat Lab 10/15/25 07:37 Completed Comprehensive Metabolic Panel Stat Lab 10/15/25 04:22 Completed LDH (Lactate Dehydrogenase) Stat Lab 10/15/25 04:22 Completed Lactate (Lactic Acid) Stat Lab 10/15/25 04:22 Completed Lipase Stat Lab 10/15/25 04:22 Completed Magnesium Stat Lab 10/15/25 04:22 Completed Partial Thromboplastin Time Stat Lab 10/15/25 04:22 Completed Phosphorous Stat Lab 10/15/25 04:22 Completed Procalcitonin Stat Lab 10/15/25 04:22 Completed Prothrombin Time with INR Stat Lab 10/15/25 04:22 Completed Troponin I Stat Lab 10/15/25 04:22 Completed Troponin I Stat Lab 10/15/25 07:37 Completed Troponin I Stat Lab 10/15/25 15:18 Completed Type and Screen Stat Lab 10/15/25 08:41 Completed Urinalysis, C/S if Indicated Stat Lab 10/15/25 04:59 Completed prbc [Red Blood Cells] Stat Lab 10/15/25 08:41 Completed Acetaminophen Ivpb [Ofirmev Inj] Med 10/15/25 04:15 Discontinued 1,000 mg in 100 ml IV X1 Acetaminophen Tab [Tylenol ES Tab] Med 10/15/25 13:30 Discontinued 1,000 mg PO X1 ONE Dextrose 5%-Ns [D5-Ns] 500 ml Med 10/15/25 15:27 Discontinued IV 250 mls/hr Dextrose 50% Syr [D50w Syringe Abboject] Med 10/15/25 09:46 Discontinued 50 ml IVP X1 ONE Dextrose 50% Syr [D50w Syringe Abboject] Med 10/15/25 14:16 Discontinued 50 ml IVP X1 ONE Doxycycline Inj [Vibramycin Inj] 100 mg Med 10/15/25 04:14 Discontinued Sodium Chloride 0.9% (Pop) [NS 0.9% mini bag] 100 ml IV X1 HYDROmorphone INJ [Dilaudid Inj] Med 10/15/25 04:15 Discontinued 0.5 mg IVP PRN HYDROmorphone INJ [Dilaudid Inj] Med 10/15/25 13:30 Discontinued 2 mg IVP X1 ONE Ketorolac Inj [Toradol Inj] Med 10/15/25 13:30 Discontinued 30 mg IVP X1 ONE Norepinephrine/D5W 8mg/250ml [Levophed in D5W 8mg/250ml Med 10/15/25 06:08 Discontinued ] 8 mg in 250 ml IV 0.05 mcg/kg/min Ondansetron Inj [Zofran Inj] Med 10/15/25 04:14 Discontinued 4 mg IVP X1 ONE Ondansetron Inj [Zofran Inj] Med 10/15/25 13:30 Discontinued 4 mg IVP X1 ONE Piper/Tazo 3.375 gm Premix [Zosyn] Med 10/15/25 04:10 Discontinued 3.375 gm in 50 ml IV X1 Sodium Chloride 0.9% 1000 ml [Ns] 1,000 ml Med 10/15/25 06:07 Discontinued IV 999 mls/hr Sodium Chloride 0.9% 1000 ml [Ns] 1,000 ml Med 10/15/25 13:30 Discontinued IV 999 mls/hr Sodium Chloride 0.9% 1000 ml [Ns] 1,641 ml Med 10/15/25 04:10 Discontinued IV 1,641 mls/hr Vancomycin Inj 2,000 mg Med 10/15/25 07:38 Discontinued Sodium Chloride 0.9% 500 ml [Ns] 500 ml IV X1 oxyCODONE/APAP 5/325 [Percocet 5/325] Med 10/15/25 12:01 Discontinued 1 tab PO X1 ONE Oxygen Delivery NOW RT 10/15/25 04:11 Completed Vital Signs Vital signs: Vital Signs Temperature 98.6 F 10/15/25 03:34 Pulse Rate 88 10/15/25 03:34 Respiratory Rate 18 10/15/25 03:34 Blood Pressure 106/47 L 10/15/25 03:34 Pulse Oximetry (%) 95 10/15/25 03:34 Oxygen Delivery Method Room Air 10/15/25 03:34 Extremity Problem MDM Narrative MDM Narrative:: Scribe Attestation: I, Janae Fortune, am scribing for and in the presence of Dr. Ceballos. Provider Notation: Although this document has been carefully reviewed, there may still be some phonetic and other typographical errors. These errors are purely grammatical due to imperfections in the software program and should not be construed in any way to compromise the substance of the patient's medical care during this visit. Patient data External records reviewed:: [facility] previous records (Reviewed prior ED records from 06/11/25. Patient was seen for Chronic pain of left knee.) and EMS form Clinical information provided by:: patient, EMS and family Social determinants that could affect healthcare access:: none Patient has the following chronic illnesses:: Cerebrovascular Accident, Peripheral Neuropathy, Migraine, Myocardial Infarction, Cardiac Arrhythmia, Angina, Coronary Artery Disease, Atherosclerotic Heart Disease, Hypercholesterolemia, Hypertension, Asthma, Gastroesophageal Reflux Disease, Obesity, Renal Disease, Arthritis, Degenerative Disk Disease, Fibromyalgia, Diabetes Mellitus Type 2, Depression and Anxiety How is presenting disease/condition affected by chronic disease/condition?: exacerbated by Evaluation data The following diagnostics were reviewed and interpreted by me:: lab results, radiology exam(s) and EKG tracing(s) (Pending) Lab and/or radiology exams considered but not ordered:: None Interpretation Summary: RADIOLOGY Chest X-Ray: Pending official radiology report. Tibia/Fibula X-Ray: Pending official radiology report. Knee X-Ray: Pending official radiology report. Medications / Prescriptions Medications or Prescriptions considered but not ordered:: None Medication administrations:: Medication Administration History Discontinued Medications Acetaminophen (Acetaminophen 500 Mg Tablet) 1,000 mg PO X1 ONE Stop: 10/15/25 13:31 Last Admin: 10/15/25 13:40 Dose: 1,000 mg Documented By: KIM Dextrose (Dextrose 50%-Water Inj 50 Ml Syringe) 50 ml IVP X1 ONE Stop: 10/15/25 09:47 Last Admin: 10/15/25 09:52 Dose: 50 ml Documented By: KIM Dextrose (Dextrose 50%-Water Inj 50 Ml Syringe) 50 ml IVP X1 ONE Stop: 10/15/25 14:17 Last Admin: 10/15/25 14:20 Dose: 50 ml Documented By: KIM Hydromorphone HCl (Hydromorphone Inj 2 Mg/Ml Vial) 0.5 mg IVP PRN CARMEN Stop: 10/20/25 04:14 Last Admin: 10/15/25 19:41 Dose: 0.5 mg Documented By: Admin: 10/15/25 10:46 Dose: 0.5 mg Documented By: Admin: 10/15/25 08:05 Dose: 0.5 mg Documented By: Admin: 10/15/25 04:34 Dose: 0.5 mg Documented By: CUAUHTEMOC Hydromorphone HCl (Hydromorphone Inj 2 Mg/Ml Vial) 2 mg IVP X1 ONE Stop: 10/15/25 13:31 Last Admin: 10/15/25 13:42 Dose: 2 mg Documented By: KIM Sodium Chloride (Ns) 1,641 mls @ 1,641 mls/hr 30 ml/kg infuse over 60 min (1641 ml) IV .Q1H ONE Stop: 10/15/25 05:09 Last Infusion: 10/15/25 05:34 Dose: Infused Documented By: Admin: 10/15/25 04:33 Dose: 1,641 mls/hr Documented By: CUAUHTEMOC Piperacillin/Tazobactam/Dextrose (Zosyn) 3.375 gm in 50 mls @ 100 mls/hr IV X1 ONE Stop: 10/15/25 04:39 Last Infusion: 10/15/25 05:11 Dose: Infused Documented By: Admin: 10/15/25 04:34 Dose: 100 mls/hr Documented By: CUAUHTEMOC Doxycycline Hyclate 100 mg/ (Sodium Chloride) 100 mls @ 100 mls/hr IV X1 ONE Stop: 10/15/25 05:13 Last Infusion: 10/15/25 06:50 Dose: Infused Documented By: Admin: 10/15/25 05:23 Dose: 100 mls/hr Documented By: CUAUHTEMOC Acetaminophen (Ofirmev Inj) 1,000 mg in 100 mls @ 250 mls/hr IV X1 ONE Stop: 10/15/25 04:38 Last Infusion: 10/15/25 05:01 Dose: Infused Documented By: Admin: 10/15/25 04:35 Dose: 250 mls/hr Documented By: CUAUHTEMOC Sodium Chloride (Ns) 1,000 mls @ 999 mls/hr IV .Q1H1M ONE Stop: 10/15/25 07:07 Last Infusion: 10/15/25 07:19 Dose: Infused Documented By: Admin: 10/15/25 06:13 Dose: 999 mls/hr Documented By: SM Norepinephrine/Dextrose (Levophed In D5w 8mg/250ml) 8 mg in 250 mls @ 9.143 mls/hr IV .Q24H PRN; Protocol PRN Reason: PER PROTOCOL Stop: 11/14/25 06:07 Last Titration: 10/15/25 19:45 Dose: 0.01 mcg/kg/min, 1.829 mls/hr Documented By: Titration: 10/15/25 19:00 Dose: 0.01 mcg/kg/min, 1.829 mls/hr Documented By: Titration: 10/15/25 18:00 Dose: 0.01 mcg/kg/min, 1.829 mls/hr Documented By: Titration: 10/15/25 17:50 Dose: 0.01 mcg/kg/min, 1.829 mls/hr Documented By: Titration: 10/15/25 17:45 Dose: 0.01 mcg/kg/min, 1.829 mls/hr Documented By: Titration: 10/15/25 16:15 Dose: 0.03 mcg/kg/min, 5.486 mls/hr Documented By: Titration: 10/15/25 16:00 Dose: 0.03 mcg/kg/min, 5.486 mls/hr Documented By: Titration: 10/15/25 15:45 Dose: 0.03 mcg/kg/min, 5.486 mls/hr Documented By: Titration: 10/15/25 15:30 Dose: 0.03 mcg/kg/min, 5.486 mls/hr Documented By: Titration: 10/15/25 15:21 Dose: 0.03 mcg/kg/min, 5.486 mls/hr Documented By: Titration: 10/15/25 15:15 Dose: 0.03 mcg/kg/min, 5.486 mls/hr Documented By: Titration: 10/15/25 15:10 Dose: 0.05 mcg/kg/min, 9.143 mls/hr Documented By: Titration: 10/15/25 15:06 Dose: 0.05 mcg/kg/min, 9.143 mls/hr Documented By: Titration: 10/15/25 13:40 Dose: 0 mcg/kg/min, 0 mls/hr Documented By: Titration: 10/15/25 13:32 Dose: 0.01 mcg/kg/min, 1.829 mls/hr Documented By: Titration: 10/15/25 13:25 Dose: 0.01 mcg/kg/min, 1.829 mls/hr Documented By: Titration: 10/15/25 10:50 Dose: 0.03 mcg/kg/min, 5.486 mls/hr Documented By: Titration: 10/15/25 10:46 Dose: 0.03 mcg/kg/min, 5.486 mls/hr Documented By: Titration: 10/15/25 10:00 Dose: 0.05 mcg/kg/min, 9.143 mls/hr Documented By: Admin: 10/15/25 09:55 Dose: 0.05 mcg/kg/min, 9.143 mls/hr Documented By: KIM Vancomycin HCl 2,000 mg/ (Sodium Chloride) 500 mls @ 150 mls/hr IV X1 ONE Stop: 10/15/25 10:57 Last Infusion: 10/15/25 11:31 Dose: Infused Documented By: Admin: 10/15/25 08:06 Dose: 150 mls/hr Documented By: KIM Sodium Chloride (Ns) 1,000 mls @ 999 mls/hr IV .Q1H1M ONE Stop: 10/15/25 14:30 Last Infusion: 10/15/25 15:01 Dose: Infused Documented By: Admin: 10/15/25 13:54 Dose: 999 mls/hr Documented By: KIM Dextrose/Sodium Chloride (D5-Ns) 500 mls @ 250 mls/hr IV .Q2H STA Stop: 10/15/25 17:26 Last Infusion: 10/15/25 18:09 Dose: Infused Documented By: Admin: 10/15/25 16:09 Dose: 250 mls/hr Documented By: JACKELIN Ketorolac Tromethamine (Ketorolac Inj 30 Mg/Ml Vial) 30 mg IVP X1 ONE Stop: 10/15/25 13:31 Last Admin: 10/15/25 13:44 Dose: 30 mg Documented By: KIM Ondansetron HCl (Ondansetron Inj 2 Mg/Ml Inj 2 Ml) 4 mg IVP X1 ONE; Protocol Stop: 10/15/25 04:15 Last Admin: 10/15/25 04:34 Dose: 4 mg Documented By: CUAUHTEMOC Ondansetron HCl (Ondansetron Inj 2 Mg/Ml Inj 2 Ml) 4 mg IVP X1 ONE; Protocol Stop: 10/15/25 13:31 Last Admin: 10/15/25 13:46 Dose: 4 mg Documented By: KIM Oxycodone/Acetaminophen (Oxycodone/Apap 5/325 Tablet) 1 tab PO X1 ONE Stop: 10/15/25 12:02 Last Admin: 10/15/25 12:40 Dose: 1 tab Documented By: KIM See above if any Consultations Consultation(s) initiated? (list below): Yes Consultation #1 (Physician, Specialty, Details): Discussed with [facility] transfer center for transfer. Pending callback. Time: 05:00 Consultation #2 (Physician, Specialty, Details): Spoke with Orthopedic Surgeon on-call, Dr. Mukund Knowles, for transfer. Reviewed the patient?s HPI, PMHx, lab and/or radiology results. Discussed treatment plan. Resident believes patient should be transferred. Dr. Knowles will contact Dr. Puente and will accept patient for transfer. Time: 05:28 Consultation #3 (Physician, Specialty, Details): Called and LVM for [facility] transfer center. Pending callback. Time: 05:33 Diagnosis Extremity Problem Differential Diagnosis: cellulitis, lower extremity edema and other (Sepsis) Most likely diagnosis given after review of the tests above:: See clinical impression below Admission Indicated Admission indicated?: not indicated Explain why admission is indicated or not indicated:: Pending transfer to [facility] Admission Request Was there a request for admission?: No Disposition Plan Disposition Plan: other (specify) (Signed out to Dr. Miller at 6 AM.) Discharge Plan Plan Patient Disposition: er Acute Care [facility] Pt Being Transferred to: Other-Specify in comment Service Needed for Transfer: Orthopedics Discharge Disposition comment: [facility] (patient had surgery there) Prescriptions/Referrals Prescriptions/Med Rec: No Action metoprolol tartrate 50 mg Tablet 50 mg PO BID hydrocodone-acetaminophen 10-325 mg Tablet 1 tab PO BID Rx Instructions: Take 1/2 tablet by mouth every 6 hours as needed for pain for 30 days tizanidine [Zanaflex] 4 mg Capsule 4 mg PO HS clopidogrel 75 mg Tablet 75 mg PO DAILY Qty: 30 0RF aspirin 81 mg tablet,delayed release (DR/EC) 81 mg PO QDAY Qty: 30 0RF pregabalin [Lyrica] 200 mg Capsule 200 mg PO QDAY promethazine 25 mg Tablet 25 mg PO BID insulin lispro [Admelog SoloStar U-100 Insulin] 100 unit/mL Insulin Pen 15 unit SUBCUT TID insulin glargine [Basaglar KwikPen U-100 Insulin] 100 unit/mL (3 mL) Insulin Pen 50 unit SUBCUT QPM fluticasone propion-salmeterol [Advair Diskus] 250-50 mcg/dose Blister With Device 1 inh INHALATION BID sennosides [Senokot] 8.6 mg Tablet 8.6 mg PO BID famotidine 40 mg Tablet 40 mg PO HS meloxicam 7.5 mg Tablet 7.5 mg PO QDAY isosorbide mononitrate 60 mg Tablet Extended Release 24 Hr 60 mg PO QDAY metoclopramide HCl [Reglan] 5 mg Tablet 5 mg PO QID pantoprazole [Protonix] 40 mg Tablet,Delayed Release (Dr/Ec) 40 mg PO QDAY ergocalciferol (vitamin D2) [Vitamin D2] 1,250 mcg (50,000 unit) Capsule 1,250 mcg PO QWEEK albuterol sulfate [Ventolin HFA] 90 mcg/actuation Hfa Aerosol Inhaler 1 puff INHALATION QID PRN (Reason: sob) duloxetine [Cymbalta] 60 mg Capsule,Delayed Release(Dr/Ec) 120 mg PO QDAY Ozempic 2 mg/dose (8 mg/3 mL) Pen Injector 2 mg SUBCUT QWEEK atorvastatin 40 mg Tablet 40 mg PO QDAY amlodipine [Norvasc] 5 mg Tablet 5 mg PO QDAY omeprazole 20 mg Capsule,Delayed Release(Dr/Ec) 20 mg PO BID meclizine 25 mg tablet 25 mg PO HS montelukast 10 mg Tablet 10 mg PO QDAY ranolazine 500 mg Tablet Extended Release 12 Hr 500 mg PO QDAY nitroglycerin 0.4 mg tablet, sublingual 0.4 mg BUCCAL [id number] PRN (Reason: chest pain) Patient Comments: DISSOLVE 1 TABLET UNDER THE TONGUE EVERY 5 MINUTES UP TO THREE DOSES NEEDED FOR CHEST PAIN. CALL 911 IF NO RELIEF glyburide 1.25 mg tablet 1.25 mg PO QDAY Referrals: Beba Moon FNP [Primary Care Provider] - In 1 week Problem List Clinical Impression: Sepsis, Left leg cellulitis, Effusion of left knee, Abscess of left leg, Severe anemia, Elevated troponin, Hypoglycemia Patient/Caregiver Discharge Instructions Discharge Activity: activity as tolerated Print Language: Frisian Stand Alone Forms: [employer] Award Info., Patient Portal Info Letter
--- NOTE | 2025-10-15 04:13 | XR_ITS ---
EXAMINATION: AP chest single view TECHNIQUE: AP portable semiupright chest single view Date and time: October 15, 2025, 0500 hours INDICATIONS: Weakness shortness of breath 1 week post knee surgery FINDINGS: Pneumonia left base retrocardiac obscuring detail left hemidiaphragm Minimal prominence left ventricle Mild to moderate vascular congestion. No kim pulmonary edema Moderate osteopenia IMPRESSION: Pneumonia left base Mild to moderate vascular congestion
[2025-10-15] MEDS: SODIUM CHLORIDE 0.9% 1000 ML 1,641 ML 1641 ML IV (04:33)
[2025-10-15] MEDS: PIPER/TAZO 3.375 GM PREMIX 3.375 GM/50 ML BAG IV (04:34)
[2025-10-15] MEDS: ONDANSETRON INJ 2 MG/ML INJ 2 ML 4 MG IVP ×2 (04:34→13:46)
[2025-10-15] MEDS: HYDROmorphone INJ 2 MG/ML VIAL 0.5 MG IVP ×4 (04:34→19:41)
[2025-10-15] MEDS: ACETAMINOPHEN IVPB 1,000 MG/100 ML VIAL 250 MG IV (04:35)
[2025-10-15 05:02] LABS: Lactate (Lactic Acid) 1.6 mMol/L (0.4-2.0)
[2025-10-15 05:05] LABS: Basophils # (Auto) 0.1 Thou/mm3 (0.0-0.2); Basophils % (Auto) 0 % (0-2.5); Eosinophils # (Auto) 0.3 Thou/mm3 (0.0-0.5); Eosinophils % (Auto) 1 % (0-10); Hematocrit 25.6 % (36.0-46.0); Immature Granulocytes Auto 0.26 Thou/mm3 (0.00-0.00); Lymphocytes # (Auto) 2.5 Thou/mm3 (1.0-4.8); Lymphocytes % (Auto) 10 % (10-50); Mean Corpuscular HGB Conc 30.5 g/dl (31.0-37.0); Mean Corpuscular Hemoglobin 25.4 pg (25.0-35.0); Mean Corpuscular Volume 83 fL (80-100); Monocytes # (Auto) 2.6 Thou/mm3 (0.0-0.8); Monocytes % (Auto) 11 % (0-12); Neutrophils # (Auto) 19.1 Thou/mm3 (1.8-7.7); Neutrophils % (Auto) 77 % (37-80); Nucleated Red Blood Cell # 0.00 Thou/mm3 (0.00-0.00); Nucleated Red Blood Cell % 0 /100 WBC (0); Platelet Count 375 Thou/mm3 (140-440); RDW Standard Deviation 49.8 fL (36.4-46.3); Red Blood Count 3.07 Miln/mm3 (4.00-5.20); White Blood Count 24.8 Thou/mm3 (3.6-11.0)
[2025-10-15 05:12] LABS: Hemoglobin 7.8 g/dL (12.0-16.0)
[2025-10-15] MEDS: DOXYCYCLINE INJ 100 MG in SODIUM CHLORIDE 0.9% (POP) 100 ML IV (05:23)
[2025-10-15 05:29] LABS: INR 1.1 (0.9-1.3); Partial Thromboplastin Time 34.1 Seconds (22.0-36.0); Prothrombin Time 11.4 Seconds (9.0-12.2)
[2025-10-15 05:31] LABS: B-Type Natriuretic Peptide 265 pg/mL (0-100)
[2025-10-15 05:44] LABS: Alanine Aminotransferase 12 U/L (10-49); Albumin, Serum 3.8 gm/dL (3.5-5.0); Albumin/Globulin Ratio 1.7 (1.2-2.2); Alkaline Phosphatase 80 U/L (46-116); Anion Gap 7 (7-16); Aspartate Amino Transferase 20 U/L (0-34); BUN/Creatinine Ratio 12 Ratio (12-20); Bilirubin,Total 0.4 mg/dL (0.3-1.2); Blood Urea Nitrogen 23 mg/dL (9-23); Calcium 8.7 mg/dL (8.3-10.6); Calcium (Corrected) 8.9 mg/dL (8.5-10.1); Carbon Dioxide 27.6 mMol/L (20.0-31.0); Chloride 106 mMol/L (98-107); Creatinine (Component) 2.0 mg/dL (0.6-1.3); Estimated Creatinine Clearance 38.2 mL/min (>60); Globulin 2.3 gm/dL (2.3-3.5); Glucose 131 mg/dL (74-106); LDH (Lactate Dehydrogenase) 191 U/L (120-246); Lipase 20 U/L (12-53); Magnesium 1.7 mg/dL (1.6-2.6); Osmolality,Calculated 286 (275-295); Phosphorous 2.6 mg/dL (2.4-5.1); Potassium 4.2 mMol/L (3.4-5.1); Procalcitonin 3.27 ng/ml (0.0-0.49); Sodium 141 mMol/L (136-145); Total Protein 6.1 gm/dL (5.7-8.2); eGFR 30 See Note
[2025-10-15 05:47] LABS: Troponin I 0.164 ng/mL (0.0-0.045)
[2025-10-15 05:51] LABS: Collection Type, Urine Clean Catch
[2025-10-15 06:02] LABS: Bilirubin,Urine Negative (Negative); Blood,Urine Negative (Negative); Clarity,Urine Turbid (Clear/Hazy); Color,Urine Yellow (Lt Yel-Yel); Culture Indicated,Urine Not Indicated; Glucose, Urine 4+ (Negative); Hyaline Casts,Urine < 1 /hpf (0-1); Ketones,Urine Negative (Negative); Leukocyte Esterase,Urine Negative (Negative); Nitrite,Urine Negative (Negative); PH,Urine 6.0 (5.0-7.0); Protein,Urine Trace (Neg - Trace); RBC,Urine 1 /hpf (0-3); Specific Gravity,Urine 1.017 (1.001-1.035); Squamous Epithelial Cell,Urine 17 /hpf (0-5); Urobilinogen,Urine Negative mg/dL (0.0-1.0); WBC,Urine 1 /hpf (0-5)
[2025-10-15] MEDS: SODIUM CHLORIDE 0.9% 1000 ML 1,000 ML 999 ML IV ×2 (06:13→13:54)
--- NOTE | 2025-10-15 07:11 | XR_ITS ---
Examination: CT bilateral lower extremities with intravenous contrast, 2-D sagittal reconstructions. 2-D coronal reconstructions. 3-D reconstructions. Date and time of exam: October 15, 2025, 10:22 a.m. INDICATIONS: Left leg erythema and edema exudate today, sepsis, status post placement 2 drainage tubes in the left leg 2 weeks ago CTDI: vol (mGy): 11.2 DLP: (mGycm): 1246 Technique: Multiple 1.25 mm axial sections of the bilateral lower extremities post intravenous administration 30 cc Isovue 300 have been obtained. 2-D sagittal and coronal reconstructions have been obtained. 3-D reconstructions have been obtained. Low dose protocols were performed. One or more of the following dose reduction techniques were used; automated exposure control, adjustment of the mA and/or KV according to patient size, use of iterative reconstruction technique. Findings: Urinary bladder wall is thickened, bladder contracted around a Ndiaye catheter Marked edema in the subcutaneous fatty tissues surrounding the left lower extremity A drainage catheter is noted, the tip at the lateral periphery of a knee effusion The knee effusion is moderate to large A second drainage catheter is present in a air-fluid collection posterior to the upper tibia This collection consistent with abscess measures approximately 4 cm in mediolateral dimension 3 cm AP dimension and 5 cm cephalad caudad dimension No cortical bone destruction IMPRESSION: Cystitis pattern Diffuse cellulitis in the soft tissue surrounding the left lower extremity Drainage catheter noted lateral margin of moderate to large knee effusion Second drainage catheter noted in abscess collection posterior to the upper tibia as above
--- NOTE | 2025-10-15 07:44 | PD.EDADDENDU ---
Emergency Room Addendum Addendum Narrative: I took over the care from previous shift physician, Dr. Ceballos, at _0600_ on _10/15/25_.? See previous notes for complete H & P and ED course.?? I reviewed all diagnostic test results. My review of the chest x-ray report is infiltrates. My review of the left knee x-ray report is no acute findings. My review of the left tibia/fibula x-ray report is no acute findings. My review of the lower extremity CT report is: Diffuse cellulitis in the soft tissue surrounding the left lower extremity. Drainage catheter noted lateral margin of moderate to large knee effusion. Second drainage catheter noted in abscess collection posterior to the upper tibia. Blood tests and urine tests?remarkable for WBC 24.8, Hgb 7.4, Cr 2.0, and troponin 0.164. Persistent hypotension noted. Persistent hypoglycemia noted. Diagnoses include: Sepsis Left leg cellulitis Left knee effusion Left leg abscess Severe anemia Elevated troponin Persistent hypoglycemia Treatment here from me included: IVF Levophed drip Blood transfusion Vancomycin Dextrose Tylenol Toradol Dilaudid No significant improvement noted. I discussed the case with [facility] multiple times.? About the presentation and exam and diagnostics and treatments here.? And need of further care there. Agreed to accept the patient. Patient left in stable condition. Due to a high probability of clinically significant, life threatening deterioration, the patient required my highest level of preparedness to intervene emergently and I personally spent this critical care time directly and personally managing the patient. This critical care time included obtaining a history; examining the patient; ordering and review of studies; arranging urgent treatment with development of a management plan; evaluation of patient's response to treatment; frequent reassessment; and discussions with family and other providers. It was exclusive of separately billable procedures and treating other patients and teaching time. Total critical care time 126 minutes. Geoff Miller MD
[2025-10-15 08:02] LABS: Basophils # (Auto) 0.1 Thou/mm3 (0.0-0.2); Basophils % (Auto) 0 % (0-2.5); Eosinophils # (Auto) 0.3 Thou/mm3 (0.0-0.5); Eosinophils % (Auto) 2 % (0-10); Hematocrit 24.2 % (36.0-46.0); Immature Granulocytes Auto 0.20 Thou/mm3 (0.00-0.00); Lymphocytes # (Auto) 2.5 Thou/mm3 (1.0-4.8); Lymphocytes % (Auto) 13 % (10-50); Mean Corpuscular HGB Conc 30.6 g/dl (31.0-37.0); Mean Corpuscular Hemoglobin 25.4 pg (25.0-35.0); Mean Corpuscular Volume 83 fL (80-100); Monocytes # (Auto) 2.1 Thou/mm3 (0.0-0.8); Monocytes % (Auto) 11 % (0-12); Neutrophils # (Auto) 14.6 Thou/mm3 (1.8-7.7); Neutrophils % (Auto) 74 % (37-80); Nucleated Red Blood Cell # 0.00 Thou/mm3 (0.00-0.00); Nucleated Red Blood Cell % 0 /100 WBC (0); Platelet Count 351 Thou/mm3 (140-440); RDW Standard Deviation 50.4 fL (36.4-46.3); Red Blood Count 2.91 Miln/mm3 (4.00-5.20); White Blood Count 19.8 Thou/mm3 (3.6-11.0)
[2025-10-15 08:06] LABS: Hemoglobin 7.4 g/dL (12.0-16.0)
[2025-10-15] MEDS: Vancomycin Inj 2,000 MG in SODIUM CHLORIDE 0.9% 500 ML 500 ML 150 MG IV (08:06)
[2025-10-15 08:28] LABS: Troponin I 0.209 ng/mL (0.0-0.045)
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
[2025-10-15 08:58] LABS: Anion Gap 9 (7-16); BUN/Creatinine Ratio 14 Ratio (12-20); Blood Urea Nitrogen 27 mg/dL (9-23); Calcium 7.8 mg/dL (8.3-10.6); Carbon Dioxide 25.4 mMol/L (20.0-31.0); Chloride 108 mMol/L (98-107); Creatinine (Component) 1.9 mg/dL (0.6-1.3); Estimated Creatinine Clearance 40.2 mL/min (>60); Glucose 80 mg/dL (74-106); Osmolality,Calculated 287 (275-295); Potassium 5.0 mMol/L (3.4-5.1); Sodium 142 mMol/L (136-145); eGFR 32 See Note
[2025-10-15] MEDS: DEXTROSE 50%-WATER INJ 50 ML SYRINGE IVP ×2 (09:52→14:20)
[2025-10-15] MEDS: Norepinephrine/D5W 8mg/250ml 8 MG/250 ML BAG 9.143 MG IV (09:55)
[2025-10-15] MEDS: ACETAMINOPHEN 500 MG TABLET 1000 MG PO (13:40)
[2025-10-15] MEDS: HYDROmorphone INJ 2 MG/ML VIAL IVP (13:42)
[2025-10-15] MEDS: KETOROLAC INJ 30 MG/ML VIAL IVP (13:44)
[2025-10-15] MEDS: DEXTROSE 5%-NS 500 ML 250 ML IV (16:09)
[2025-10-15 16:40] LABS: Troponin I 0.333 ng/mL (0.0-0.045)
--- NOTE | 2025-10-15 16:41 | PC.NURSE ---
Spoke with lab, patient has critical high troponin .333, RN Ilya aware. Provider aware.
--- NOTE | 2025-10-15 19:38 | PC.NURSE ---
attempted to call report transferred to coordinator as pt is going to have a different bed assignment unable to give report will call back with bed assignment
--- NOTE | 2025-10-16 02:17 | PC.NURSE ---
transport to [facility] with [facility], pt vitals stable, levophed not titrated during transport stayed at 0.01mcg. pt blood sugar was 55 at 2043 called [facility] gave order for ems to give d10 in route. pt remained stable during transport to accepting facility. Called report on way to [facility] 2028 given bed number [id number] as report was attempted prior to leaving yet bed assignment was changed. GUY Pang [place] [facility] [place]. transport report sheets complete and will be filed with pt chart.
== END 2025-10-15 20:06 | disposition short-term general hospital (02) ==
PROVIDERS: Emergency Medicine; Emergency Provider Emergency Medicine; PCP Registered Nurse Community Health
DX: A41.9 Sepsis, unspecified organism (principal); L03.116 Cellulitis of left lower limb; M25.462 Effusion, left knee; I25.10 Atherosclerotic heart disease of native coronary artery without angina pectoris; E11.649 Type 2 diabetes mellitus with hypoglycemia without coma; L02.416 Cutaneous abscess of left lower limb; D64.9 Anemia, unspecified; R79.89 Other specified abnormal findings of blood chemistry
CPT/HCPCS: 36415; 51702; 71045; 73560; 73590; 73701; 80048; 80053; 81001; 83605; 83615; 83690; 83735; 83880; 84100; 84145; 84484; 85025; 85610; 85730; 86850; 86900; 86901; 86923; 87040; 93005; 96361; 96365; 96366; 96375; 96376; 99291; A4314; A4649; J0131; J1171; J1885; J2405; J2543; J3373; J3490; J7030; J7042; J7999; P9016; Q9967; A9270